=== PATIENT | female | born 1980 | race Caucasian/White ===

== ENCOUNTER → 2019-01-03 11:21 | Outpatient (CLI) | payer OTHER, SELFPAY | PROVIDERS: Family Provider Family Medicine; PCP Family Medicine; Referring Provider Dermatology; Visit Provider Dermatology | DX: L71.8 Other rosacea (principal) | CPT/HCPCS: 86038 ==

== ENCOUNTER → 2019-02-26 10:11 | Outpatient (CLI) | payer OTHER, SELFPAY ==
[2019-02-26 11:23] LABS: EXAGEN MAILED SPECIMEN
[2019-02-26 12:35] LABS: Color, Urine Yellow (Yellow); Glucose, Dipstick Normal (Normal); Ketone-Dipstick Negative (Negative); Leukocyte Esterase-Dipstick Negative /ul (Negative); Nitrite-Dipstick Negative (Negative); Occult Blood-Urine Negative /ul (Negative); Protein-Dipstick Negative (Negative); Urine Bilirubin Dipstick Negative (Negative); Urine Clarity Sl. Cloudy (Clear); Urine Urobilinogen Normal (Normal)
[2019-02-26 12:38] LABS: Partial Thromboplast Time 26.2 Seconds (24.1-36.2); Prothrombin Time (Protime)PT. 13.2 SECONDS (11.7-14.9)
[2019-02-26 12:49] LABS: ALB/GLOB Ratio 0.8 RATIO (0.9-2.4); AST(SGOT) 16 U/L (15-37); Alanine Aminotransfer ALT/SGPT 22 U/L (13-56); Albumin, Serum 3.5 g/dL (3.2-5.0); Alkaline Phosphatase 75 U/L (45-117); Anion Gap 9 (5-15); BUN 11 mg/dL (7-18); BUN/Creat Ratio 11.2 RATIO (10-20); Calcium,Total 8.8 mg/dL (8.5-10.1); Chloride 104 mmol/L (98-107); Creatinine, Serum 0.98 mg/dL (0.55-1.02); EST Glomerular Filtration Rate 66 mL/min (>60); Est Glom Filt Rate - Afr Amer 80 mL/min (>60); Globulin 4.4 g/dL (2.2-4.2); Glucose 72 mg/dL (74-106); Potassium 3.8 mmol/L (3.5-5.1); Protein, Total 7.9 g/dL (6.4-8.2); Sodium Level 140 mmol/L (136-145)
[2019-02-26 12:53] LABS: Absolute Lymphocyte Count 2.37 X10^3/ul (0.83-4.51); Absolute Neutrophil Count 5.1 X10^3/uL (2.0-7.7); Basophil# 0.04 X10^3/uL; Basophil% 0.5 % (0-1); Eosinophil# 0.12 X10^3/uL; Eosinophils% 1.4 % (0-5); Hematocrit 43.5 % (37-47); Hemoglobin 14.6 g/dl (12.0-15.0); Lymphocyte # 2.37 X10^3/ul (4.0); Lymphocyte % 28.3 % (19-41); Mean Corp Hgb Conc 33.6 g/gl (32-36); Mean Corpuscular Hgb 30.6 pg (27.0-32.0); Mean Corpuscular Volume 91.2 fL (81-99); Monocyte# 0.73 X10^3/uL; Monocyte% 8.7 % (0-10); Platelet Count 132 K/mm3 (150-450); RBC Distribution Width CV 13.5 % (11.6-14.6); RBC Distribution Width SD 44.6 fl (35.1-43.9); Red Blood Count 4.77 M/mm3 (4.2-5.4); White Blood Count 8.4 K/mm3 (4.4-11.0)
[2019-02-26 12:55] LABS: Differential Indicated SCAN CRITERIA MET; POSITIVE COUNT NO; POSITIVE DIFFERENTIAL NO; POSITIVE MORPHOLOGY YES
[2019-02-26 12:58] LABS: Protein, Urine (Random) 9.3 mg/dL (<11.9); Protein:Creat Ratio 144 mg/g CRE (0-200)
[2019-02-26 13:10] LABS: Platelet Estimate ADEQUATE (ADEQ); Platelet Morphology LARGE
[2019-02-28 04:06] LABS: Dilute Prothrombin Time (dPT) 46.5 sec (0.0-55.0); Dilute Russell Viper Venom 40.6 sec (0.0-47.0); HEPATITIS B SURFACE AG Negative (Negative); Hexagonal Phase Phospholipid 5 sec (0-11); PTT-LA 33.9 sec (0.0-51.9); Thrombin Time 18.6 sec (0.0-23.0); dPT Confirm Ratio 1.18 Ratio (0.00-1.40)
[2019-02-28 11:26] LABS: Hep B Surface Antibodies Reactive (.); Hep C Antibodies 0.1 s/co ratio (0.0-0.9); Hepatitis B Core AB IgM Negative (Negative); Interpretation Comment: (.)
[2019-02-28 11:29] LABS: Thrombin Time 17.8 sec (0.0-23.0)
== END ==
PROVIDERS: Family Provider Family Medicine; PCP Family Medicine; Referring Provider Internal Medicine Rheumatology; Visit Provider Internal Medicine Rheumatology
DX: M06.4 Inflammatory polyarthropathy (principal); R76.8 Other specified abnormal immunological findings in serum; M72.2 Plantar fascial fibromatosis; L71.9 Rosacea, unspecified; F32.89 Other specified depressive episodes; J30.9 Allergic rhinitis, unspecified; M21.40 Flat foot [pes planus] (acquired), unspecified foot
CPT/HCPCS: 36415; 80053; 81002; 82570; 84156; 85025; 85598; 85610; 85670; 85730; 86705; 86706; 86803; 87340

== ENCOUNTER → 2019-03-28 09:11 | Outpatient (CLI) | payer OTHER, SELFPAY ==
--- NOTE | 2019-03-28 09:15 | RAD_ITS ---
HISTORY: HEEL PAIN COMPARISON: None FINDINGS: # of images incl. paperwork: 3 XR Foot Min 3 Views : A tiny plantar calcaneal spur is present. No fracture or subluxation. No osseous or soft tissue abnormality. The joint spaces are well-maintained. No radiopaque foreign body is seen. RAD/Foot min 3 Views IMPRESSION: No acute injury to the right foot perceived. Small plantar calcaneal spur. at 2250 Reported and signed by: Chau George MD Electronically Signed: Chau George MD at 22:49 EDT Tel , Service support ,
--- NOTE | 2019-03-28 09:16 | RAD_ITS ---
HISTORY: HEEL PAIN COMPARISON: Previous study is nonweightbearing from January 22, 2016 FINDINGS: # of images incl. paperwork: 3 XR Foot Min 3 Views : Fixation plate within the medial aspect of the distal tibia is unchanged. Peroneal ossicle is ossified to a greater degree than previously. No fracture or subluxation. No osseous or soft tissue abnormality. The joint spaces are well-maintained. No radiopaque foreign body is seen. RAD/Foot min 3 Views IMPRESSION: Normal left foot. at 2251 Reported and signed by: Chau George MD Electronically Signed: Chau George MD at 22:50 EDT Tel , Service support ,
== END ==
PROVIDERS: Family Provider Family Medicine; PCP Family Medicine; Referring Provider Podiatrist; Visit Provider Podiatrist
DX: M72.2 Plantar fascial fibromatosis (principal)
CPT/HCPCS: 73630

== ENCOUNTER 2019-07-06 10:19 | Day surgery (SDC) | payer OTHER, SELFPAY ==
--- NOTE | 2019-07-02 15:34 | HP.PCM_ITS ---
History and Physical Date of Admission: 07/06/19 Mallory Ricop 1980 ? ? REFERRING PHYSICIAN: Cristiana Reyes ([facility]), DEC* ? CHIEF COMPLAINT: Breast neoplasia ? 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 She tolerated biopsy, has no new complaints She denies fevers. Notes bruising at site, but minimal pain in the area. ? Pathology - needle core biopsy 06/25/19 - Nodular adenosis with apocrine metaplasia. COMMENT Immunohistochemical stains for p63 and SMMS-1 demonstrate the presence of myoepithelial cells throughout the lesion. ? ? PAST MEDICAL HISTORY ? Fracture of tibia and fibula 10/29/2015 ? PLANTAR WART ? ? R hallux ? PMH - PAST MEDICAL HISTORY OF ? ? 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 Rosacea 05/17/2018 ? Thrombocytopenia (HCC) 02/09/06 ? PAST SURGICAL HISTORY ? INSERTION OF IUD ? 02/14/2019 ? Mirena ? ORAL SURGERY PROCEDURE ? ? ? WISDOM TEETH EXTRACTION ? PAST SURGICAL HISTORY OF ? ? ? HYMENECTOMY ? PAST SURGICAL HISTORY OF ? 04/2010 ? excision of skin lesion from face ? PAST SURGICAL HISTORY OF ? 10/2015 ? See scanned documents ? REMOVAL OF OVARIAN CYST(S) ? 01/13/10 ? left ovarian cystecomy-hemorrhagic ? ? Current Outpatient Medications: hydroxychloroquine (PLAQUENIL) 200 mg tablet Take 200 mg by mouth once daily. levonorgestrel (MIRENA) 20 mcg/24 hours (5 yrs) 52 mg IUD 1 Each by INTRAUTERINE route one time only. FLUoxetine (PROZAC) 20 mg capsule Take 1 capsule by mouth once daily. metroNIDAZOLE 1 % cream Apply to affected area once daily. ammonium lactate (LAC-HYDRIN) 12 % cream Apply to affected area as needed. COMPOUNDED PRESCRIPTION Fluowart Gel: Fluorocracil (5) 5%, salicylic acid 15%, tygyn-d-nqnodff (2) 0.195%, cimetidine 5% in anhydrous base.SIG: apply to each wart with cotton swab BID. [place] area around wart with light film of Vaseline. Cover with bandage. MULTIVITAMIN ORAL Take by mouth. cetirizine (ZYRTEC) 10 mg tablet Take 10 mg by mouth once daily. ? ? ALLERGIES: Zithromax [Azithromycin]; Sulfa (Sulfonamide Antibiotics); Bactrim [Sulfamethoxazole-Trimethoprim] ? 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 FAMILY HISTORY ? Cancer Mother ? ? OVARIAN CANCER ? Colon Cancer Mother ? ? Uterine Cancer as well, small bowel obstruction ? Hypertension Father ? ? Lipids Father ? ? High Cholesterol ? Heart Maternal Grandmother ? ? Cardiopulmonary Arrest ? Heart Maternal Grandfather ? ? Cardiac Arrest, Arteriosclerotic Heart Disease ? Diabetes Paternal Grandmother ? ? Hypertension Paternal Grandmother ? ? Heart Paternal Grandfather ? ? [place] ? ? REVIEW OF SYSTEMS: ?General:???The patient denies fatigue, denies weight loss, denies weight gain, denies feeling hot, and denies feelings of cold. ?Eyes: ?The patient denies glaucoma, denies eye injury/surgery, wears glasses or contacts. ?Ear/Nose/Throat: ?The patient NOTES allergies, denies hayfever, denies ear infections, and denies bloody noses. ?Cardiovascular: ?The patient denies chest pain, denies heart disease, denies high blood pressure,denies cardiac stent, denies prior heart attack, denies irregular heart beat, denies high cholesterol, ?denies poor circulation, denies heart failure, other cardiac issues, denies claudication, denies cold feet, denies peripheral arterial stent. ?Respiratory: ?The patient denies tuberculosis, denies pneumonia, denies frequent cough, denies pulmonary embolism, denies shortness of breath, and denies coughing up blood. ?Gastrointestinal: ?The patient denies difficulty swallowing, denies acid reflux, denies ulcers, denies vomiting, denies jaundice/hepatitis, denies gallbladder problems, denies black or tarry stools, denies hemorrhoids, denies bleeding from rectum, denies diverticulitis, denies constipation, denies diarrhea, denies loss of stool control, and denies hernias. ?Kidney/Bladder: ?The patient denies kidney stones, denies urine infections, and denies bloody urine. ?Skin: ?The patient denies a history of skin cancer, denies bleeding/changing moles, and denies a history of skin rash. ?Neurologic: ?The patient denies a history of epilepsy/convulsions, denies headaches, denies head/spinal injuries, and denies stroke/TIA. ?Psychiatric: ?The patient denies psychiatric medications, denies depression , and denies voices, denies substance abuse. ?Endocrine: ?The patient denies thyroid disorders, denies diabetes, and denies hormonal problems. ?Hematologic: ?The patient denies a history of bruising, denies bleeding, and denies anemia, denies blood clots. ?Infections: ?The patient denies a history of measles and mumps, denies rheumatic fever, and denies sexually transmitted diseases. ?Musculoskeletal: ?The patient denies back pain/injury, denies back problems, denies sciatica, NOTES knee/foot trouble, NOTES arthritis, or denies gout. ?Obstetrical: menarche at age 9.5, , first age 29, breast feeding 6m, BCP use from age 21 for about 7 y, used Mirena IUD for a few months, used infertility hormones for about 2-4 y, LMP 9/16 ? ? PHYSICAL EXAMINATION: General: ?The patient is 38 year old female, well nourished, well hydrated in no acute distress. ?The patient is oriented to time, place, and person. VITALS:?Blood pressure 14/88, pulse 86, temperature 98.1 ?F RR 16 Ht: 5'8 Wt: 226#.? Head ? Normocephalic. EOM intact with sclera clear and no icterus noted.?Wearing glasses.??Mouth with mucus membranes moist. Neck - supple with no jugular venous distention noted. Trachea is midline. No carotid bruits noted. No thyroid enlargement or thyroid nodules detected. No masses noted. Chest/breast ? no asymmetry of breasts noted, no suspicious skin lesions noted - right breast with ecchymoses and healing biopsy site, no nipple discharge and both nipples everted, no breast masses noted Lungs ? clear to auscultation. ?Normal breath sounds. No rales/rhonchi/wheezing noted. No labored breathing noted, such as retractions. No cough heard. Heart ? normal S1 and S2 auscultated. No rubs/clicks/murmurs noted. Regular rate. Abdomen ? soft and benign. Normal bowel sounds. No abdominal bruits noted. No distention noted. Extremities ? no calf tenderness noted. No pitting edema noted. Skin ? normal skin integrity. Lymph ? no cervical adenopathy detected, no supraclavicular adenopathy detected, no axillary adenopathy detected Neurological ??gait normal, no focal deficits noted. Psych ? calm and appropriate RADIOLOGIC STUDIES: ?As Noted ? ? IMPRESSION: breast lesion of uncertain behavior ? PLAN: I have discussed the above with the patient and her who is present with her. Because of family history of ovarian cancer, infertility hormones, etc. ? I have recommended that further tissue to be obtained. I have offered further evaluation with wide local excision I have explained to procedure to them. I have counseled the patient as to the risks of the procedure, including but not limited to: infection, bleeding, injury to any blood vessels/nerves, scar tissue, wound infections, complications of anesthesia, etc. ? the patient understands. The patient wishes to proceed. Plan for right breast biopsy via wire localization at [facility] as per patients wishes. I have answered all questions to the patient?s satisfaction and the patient has no further questions. . 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
--- NOTE | 2019-07-06 | IMM_PTH ---
PATIENT: PAMELA GOODWIN LOC: [facility] [place] U#:[id number] AGE/SX: 38/F ROOM: RE07/06/[address]: Dr. Melinda Montelongo MD : 1980 BED: DIS: 07/06/2019 SPEC #: [id number] RECD: 07/12/19 10:34 STATUS: YVAN REQ #: [id number] KATHRYN: 07/06/19 00:[address]: Melinda Montelongo DEPT: IMMUNOHISTOCHEMISTRY RECD BY: Rufina Rodrgiuez ENTERED: 07/12/19 10:35 SP TYPE: IMMUNO OTHR DR: Dr. Haroldo Peck III, MD Tissues: Right breast, NOS Procedures: Calponin-1(initial) CALPONIN-1 (add) P40 (add) PHYSICIAN & INSTITUTION [place] [id number] SPECIMEN INFORMATION: Tissue Source: Right breast biopsy Clinical Info: Abnormal lesion of right breast Specimen Number: [id number] #4 & 9 CPT code: 46235, 87961 x3 METHODOLOGY: Deparaffinized sections of prefer/formalin-fixed tissue or PAP/DQ stained slides are incubated with monoclonal/polyclonal antibodies/oligonucleotide probes. Localization is made via biotin free immunoperoxidase method. Appropriate controls are performed and reacted as expected. Results on target cell population are indicated in the following table: RESULTS: ANTIBODY / CLONE RESULT Block 4 P40 (BC28) positive Calponin-1 (VG073M) positive Block 9 P40 (BC28) positive Calponin-1 (XZ369N) positive These tests were developed and their performance characteristics determined by [facility]. They may not have been cleared or approved by the U.S. Food and Drug Administration. The FDA has determined that such clearance or approval is not necessary. The above immunohistochemical/dualISH markers are ordered and reviewed by the Pathologist. INTERPRETATION: Right breast biopsy: Consistent with nodular adenosis. SJ:aishwarya 07/12/19
[2019-07-06 11:15] VITALS: BP 142/97; PULSE 80; RESP 64; TEMP 37.7; O2SAT 99; BMI 34.5
--- NOTE | 2019-07-06 11:16 | BI_ITS ---
SURGICAL BREAST SPECIMEN RADIOGRAPH CLINICAL: Document presence of tissue clip marker in biopsy specimen. FINDINGS: Specimen shows presence of tissue clip marker. Electronically Signed: Gabriel Wright, at 15:16 EDT , Service support , BI/Breast Biopsy Specimen
[2019-07-06] MEDS: Lactated Ringers 1,000 ML 75 ML IV (11:45)
[2019-07-06 12:10] LABS: Internal QC Validated? YES +Cl - CLEAR BKGD; Pregnancy, Urine Negative Negative
[2019-07-06] MEDS: Cefazolin 2 GM in 0.9% Normal Saline 100 ML IV (12:18)
--- NOTE | 2019-07-06 12:20 | PCM.DC.BS ---
Discharge Diet: No Restrictions Discharge Activity: Return to Normal Activity, May not drive while taking narcotic pain medications. Additional Activity Instructions:: Wear supportive bra during the day Call your doctor if your incision/area has: Continuous Slow Oozing, Foul Smelling Discharge Call your doctor if you observe: Fever of 101 or Higher Additional Dressing/Incision Instructions:: Leave dressing in place. May get wet in shower. Do not soak - no tub baths/swimming Allergies/Adverse Reactions: Allergies azithromycin [From Zithromax] Allergy (Verified 07/04/19 16:00) Chest tightness Sulfa (Sulfonamide Antibiotics) Allergy (Verified 07/04/19 16:00) Hives sulfamethoxazole [From Bactrim] Allergy (Verified 07/04/19 16:00) Hives trimethoprim [From Bactrim] Allergy (Verified 07/04/19 16:00) Hives Medications to take at Discharge Cetirizine HCl [Zyrtec] 10 mg PO DAILY PRN PRN 03/09/14 Fluoxetine [Prozac] 20 mg PO DAILY 10/29/15 Levonorgesterol [Mirena] 1 ea IY CONT 07/04/19 Hydrocodone/Acetaminophen [[place] 5-325 Tablet] 1 ea PO Q8 PRN 5 Days #15 tab 07/06/19 The following prescriptions were given: Hydrocodone/Acetaminophen [[place] 5-325 Tablet] 1 ea PO Q8 PRN 5 Days #15 tab PRN Reason: Pain Score 4-10/10 Prescription Printed Primary Care Physician: Haroldo Peck III, MD [Primary Care Provider] - Please Follow Up With: Melinda Montelongo MD - all When: to be seen in 7-10 days, please call for date and time, thank you
--- NOTE | 2019-07-06 12:21 | PCM.OPRPT ---
Report of Operation Date of Procedure: 07/06/19 Pre-Operative Diagnosis: right breast lesion of uncertain behavior - apocrine metaplasia, family history of ovarian cancer Post-Operative Diagnosis: same Surgery/Procedure Performed:: right breast biopsy via wire localization Description of Surgical Findings:: lower right breast lesion - outer answering service telephone operator: Lyudmila Colbert Type of Anesthesia:: General Anesthesiologist: Timi Espino Specimen's removed: right breast tissue Estimated Blood Loss (mL): < 10 ml Fluids Replaced: see anesthesia noted Description of Procedure: After informed consent was given, the patient was brought into the Breast Stereotactic Radiology suite. Appropriate time out protocol was followed. She was then placed in the prone position on the [place] stereotactic table. The patient?s right breast was placed in the opening at the head of the table. A material specialist compression mammogram was then obtained in the lateral view. The marker clip that was previously placed was identified. Stereo pictures of the lesion were then taken for XYZ coordinates. The Kopans needle was then positioned where it would be entering into the patient?s breast. The skin at this site was then cleansed with a surgical skin preparation. The skin and subcutaneous tissues at this site were then infiltrated with 1% xylocaine. The Kopans needle was then positioned into the patient?s breast at the proper coordinates of depth. A material specialist film was obtained which revealed the wire in proper position. The patient was then placed in the supine position and the wire was taped into place. A unilateral mammogram in the CC and MLO view were then taken for use in the OR. The patient tolerated this portion of the procedure well and was brought to the AC awaiting surgery in the OR. The patient was then brought to the Operating Room. Appropriate time out protocol was followed. She was then placed on the operating table in the supine position. A wire had already been placed in the stereotactic biopsy room in the radiology department as described above. The right breast with the wire in placed was then prepped with a sterile surgical skin preparation and sterile surgical drapes were placed. The skin and subcutaneous tissues at the site of the breast lesion was then infiltrated with 1% xylocaine with epinephrine. A transverse skin incision was then made with a 15 blade scalpel in the lower outer quadrant of the patient's right breast. It was carried down through to the subcutaneous tissues. Hemostasis was controlled with electrocautery. The breast tissue surrounding the wire was then carefully palpated out and from the surrounding tissues using electrocautery. The breast tissue, once from the breast, was then forwarded to the radiology department, where a specimen mammogram revealed that the marker clip was within the specimen. The breast tissue was then forwarded to pathology for analysis. Hemostasis was carefully controlled with electrocautery. The subdermal tissues were then approximated with vicryl suture. The incision was then reapproximated close using running monocryl suture. Cavilon and steristrips were then placed to reinforce the skin closure. A sterile dressing was then applied. The patient was then brought to the Recovery Room in stable condition. - Complications none noted - Admit VTE Documentation VTE Present on Admission: Yes VTE Mechan Device Prophylaxis: SCD's
--- NOTE | 2019-07-06 13:00 | BRBX_PTH ---
PATIENT: PAMELA GOODWIN LOC: [facility] [place] U#:[id number] AGE/SX: 38/F ROOM: RE07/06/[address]: Dr. Melinda Montelongo MD : 1980 BED: DIS: 07/06/2019 SPEC #: [id number] RECD: 07/06/19 13:10 STATUS: YVAN REQ #: [id number] KATHRYN: 07/06/19 13:[address]: Melinda Montelongo DEPT: SURGICAL PATHOLOGY RECD BY: Louis Mead ENTERED: 07/06/19 13:39 SP TYPE: BREAST BX OTHR DR: Dr. Haroldo Peck III, MD Tissues: Right breast, NOS Procedures: Surgery Specimen Level V Comments: @ Originally on account #[id number] Req #[id number] HEADER OPERATION: Right breast biopsy via localization PRE-OP DIAGNOSIS: Abnormal lesion of right breast TISSUE SUBMITTED: Right breast tissue MICROSCOPIC DIAGNOSIS Right breast, lumpectomy with needle localization: Multifocal nodular adenosis. Fibrocystic changes and intraductal hyperplasia without atypia. Negative for malignancy. Changes consistent with previous biopsy site. See comment. SJ:rg 07/11/19 COMMENT Immunohistochemistry ([id number]) supports the above diagnosis. Correlation with clinical, radiologic findings and appropriate follow up are necessary. Case has been reviewed in consultation with Dr. Franks who concurs with the above diagnosis. IDC:AM MICROSCOPIC DESCRIPTION Slides are reviewed. GROSS DESCRIPTION Received fresh and postfixed in formalin labeled with the patient's name is a specimen designated right breast tissue. The specimen consists of a piece of fibroadipose tissue containing a wire measuring 9 x 7 x 4 cm. The specimen is not oriented. The specimen is inked, serially sectioned and reveal a marie, indurated area measuring 2 x 1 x 0.5 cm. A second ill-defined, indurated area is also noted. Hydrogen Plant Operator sections are submitted in 12 cassettes. Cassettes 3-5 contain the marie, indurated area, 9?& 10 contains the ill-defined area. Sections will be submitted after additional fixation. / Emanuel 07/09/19 TC:5 CPT: 95336
[2019-07-06 13:22] VITALS: BP 132/85; BP 142/97; PULSE 103; RESP 18; TEMP 36.6; O2SAT 98
[2019-07-06 13:30] VITALS: BP 140/80; BP 142/97; PULSE 103; RESP 16; O2SAT 98
[2019-07-06 13:45] VITALS: BP 132/86; BP 142/97; PULSE 88; RESP 16; TEMP 36.8; O2SAT 95
[2019-07-06 15:45] VITALS: BP 142/97; PULSE 70; RESP 16; O2SAT 98
== END 2019-07-06 16:04 | disposition home or self-care (01) ==
LOC: SDC 10:19 → AC 10:21
PROVIDERS: Anesthesiology; Family Provider Family Medicine; PCP Family Medicine; Referring Provider Surgery; Visit Provider Surgery
PROC: (CPT 19125; principal; 2019-07-06 11:45)
DX: N60.21 Fibroadenosis of right breast (principal); N60.11 Diffuse cystic mastopathy of right breast; N60.81 Other benign mammary dysplasias of right breast; Z80.41 Family history of malignant neoplasm of ovary
CPT/HCPCS: 19125; 19281; 76098; 81025; 88305; 88307; 88341; 88342; J7050; J7120; J2405

== ENCOUNTER → 2019-09-28 07:39 | Outpatient (CLI) | payer OTHER, SELFPAY ==
[2019-09-28 07:51] LABS: Mucous, Urine 0 SEEN /hpf (<or=2+)
[2019-09-28 08:54] LABS: Erythrocyte Sedimentation Rate 14 mm/hr (0-20)
[2019-09-28 08:58] LABS: Absolute Lymphocyte Count 2.15 X10^3/uL (0.83-4.51); Absolute Neutrophil Count 4.9 X10^3/uL (2.0-7.7); Basophil# 0.06 X10^3/uL; Basophil% 0.7 % (0-1); Eosinophil# 0.12 X10^3/uL; Eosinophils% 1.5 % (0-5); Hematocrit 44.1 % (37-47); Hemoglobin 14.2 g/dL (12.0-15.0); Lymphocyte # 2.15 X10^3/ul (4.0); Lymphocyte % 26.8 % (19-41); Mean Corp Hgb Conc 32.2 g/dL (32-36); Mean Corpuscular Hgb 28.6 pg (27.0-32.0); Mean Corpuscular Volume 88.7 fL (81-99); Mean Platelet Vol. 14.1 fl (6.2-12.0); Monocyte# 0.75 X10^3/uL; Monocyte% 9.3 % (0-10); NRBC Flagged by Analyzer 0 % (0-5); Neutrophil # 4.93 X10^3/uL (2.7-7.7); Neutrophil % 61.5 % (47-70); Platelet Count 143 K/mm3 (150-450); RBC Distribution Width CV 13.1 % (11.6-14.6); RBC Distribution Width SD 42.1 fl (35.1-43.9); Red Blood Count 4.97 M/mm3 (4.2-5.4)
[2019-09-28 09:06] LABS: Glucose, Dipstick Normal (Normal); Ketone-Dipstick Negative (Negative); Leukocyte Esterase-Dipstick 25 /ul (Negative); Nitrite-Dipstick Negative (Negative); Occult Blood-Urine Negative /ul (Negative); Protein-Dipstick Negative (Negative); Specific Gravity, Urine 1.015 (1.002-1.030); Urine Bilirubin Dipstick Negative (Negative); Urine Urobilinogen Normal (Normal)
[2019-09-28 09:14] LABS: AST(SGOT) 18 U/L (15-37); Alanine Aminotransfer ALT/SGPT 35 U/L (13-56); Albumin, Serum 3.7 g/dL (3.2-5.0); Alkaline Phosphatase 84 U/L (45-117); Bilirubin, Direct 0.11 mg/dL (0.00-0.30); CRP 5.46 mg/L (0.0-3.0); Creatinine, Serum 0.86 mg/dL (0.55-1.02); EST Glomerular Filtration Rate 77 mL/min (>60); Est Glom Filt Rate - Afr Amer 93 mL/min (>60); Globulin 3.9 g/dL (2.2-4.2); Protein, Total 7.6 g/dL (6.4-8.2); Rheumatoid Factor < 10.0 IU/mL (<15); Thyroid Stim Hormone (TSH) 2.29 uIU/mL (0.358-3.74)
[2019-09-28 09:18] LABS: Color, Urine Yellow (Yellow); Urine Clarity Clear (Clear)
[2019-09-28 09:26] LABS: Bacteria 1+ /hpf (None Seen); Red Blood Cells-Urine 5-10 SEEN /hpf (0-5); Squamous Epithelial Cells - UA 0-5 SEEN /hpf (5-10); White Blood Cells 0-5 SEEN /hpf (0-5); Yeast-Urine 1+ /hpf (None Seen)
[2019-09-28 09:27] LABS: Amorphous Sediment 1+
[2019-10-06 14:07] LABS: Complement C3 133 mg/dL (82-167)
[2019-10-07 10:32] LABS: Anti-Cardiolipin Ab, IgG, Qn < 9 GPL U/mL (0-14); Anti-Cardiolipin Ab, IgM, Qn < 9 MPL U/mL (0-12); CCP IgG Antibodies 13 units (0-19); Thyroglobulin RIA 6.4 ng/mL (.); Thyroid Peroxidase AB 66 IU/mL (0-34)
== END ==
PROVIDERS: PCP Family Medicine; Referring Provider Internal Medicine Rheumatology; Visit Provider Internal Medicine Rheumatology
DX: M06.4 Inflammatory polyarthropathy (principal); R76.0 Raised antibody titer; E06.3 Autoimmune thyroiditis; Z79.899 Other long term (current) drug therapy
CPT/HCPCS: 36415; 80076; 81001; 82565; 84432; 84443; 85025; 85652; 86038; 86140; 86147; 86160; 86200; 86225; 86235; 86376; 86431; 86800

== ENCOUNTER → 2022-06-22 | Outpatient (CLI) | payer OTHER, SELFPAY ==
[2022-06-22 10:15] LABS: Absolute Lymphocyte Count 1.88 X10^3/uL (0.83-4.51); Absolute Neutrophil Count 3.9 X10^3/uL (2.0-7.7); Basophil# 0.06 X10^3/uL; Basophil% 0.9 % (0-1); Eosinophil# 0.15 X10^3/uL; Eosinophils% 2.3 % (0-5); Hemoglobin 14.6 g/dL (12.0-15.0); Lymphocyte # 1.88 X10^3/ul (0.83-4.51); Lymphocyte % 28.4 % (19-41); Mean Corp Hgb Conc 32.4 g/dL (32-36); Mean Corpuscular Hgb 30.5 pg (27.0-32.0); Mean Corpuscular Volume 94.1 fL (81-99); Mean Platelet Vol. 13.9 fl (6.2-12.0); Monocyte# 0.57 X10^3/uL; Monocyte% 8.6 % (0-10); NRBC Flagged by Analyzer 0 % (0-5); Neutrophil # 3.93 X10^3/uL (2.7-7.7); Neutrophil % 59.5 % (47-70); Platelet Count 143 K/mm3 (150-450); RBC Distribution Width CV 12.7 % (11.6-14.6); RBC Distribution Width SD 44.1 fl (35.1-43.9); Red Blood Count 4.78 M/mm3 (4.2-5.4); White Blood Count 6.6 K/mm3 (4.4-11.0)
[2022-06-22 11:15] LABS: Alanine Aminotransfer ALT/SGPT 22 U/L (13-56); Creatinine, Serum 0.81 mg/dL (0.55-1.02); EST Glomerular Filtration Rate 82 mL/min (>60); Est Glom Filt Rate - Afr Amer 99 mL/min (>60); Glucose 93 mg/dL (74-106); Thyroid Stim Hormone (TSH) 2.05 uIU/mL (0.358-3.74)
== END | disposition home or self-care (01) ==
PROVIDERS: PCP Family Medicine; Referring Provider Family Medicine; Visit Provider Family Medicine
DX: Z00.00 Encounter for general adult medical examination without abnormal findings (principal)
CPT/HCPCS: 36415; 82565; 82947; 84443; 84460; 85025

== ENCOUNTER → 2022-07-15 | Outpatient (CLI) | payer OTHER, SELFPAY ==
[2022-07-15 18:42] LABS: AST(SGOT) 18 U/L (15-37); Alanine Aminotransfer ALT/SGPT 25 U/L (13-56); Albumin, Serum 3.9 g/dL (3.2-5.0); Alkaline Phosphatase 72 U/L (45-117); Bilirubin, Direct 0.12 mg/dL (0.00-0.30); Globulin 3.9 g/dL (2.2-4.2); Protein, Total 7.8 g/dL (6.4-8.2)
[2022-07-16 10:23] LABS: HIV - WCH Non-Reactive (Nonreactive); Hepatitis B Surface Antibody Reactive; Hepatitis B Surface Antigen Non-Reactive (Nonreactive); Hepatitis C Antibody Non-Reactive (Nonreactive)
[2022-07-17 12:08] LABS: QNTFERON TB Mitogen Value > 10.00 IU/mL (.); QNTFERON TB Nil Value 0.02 IU/mL (.); QNTFERON TB1+ Ag Value 0.01 IU/mL (.); QNTFERON TB2+ Ag Value 0.02 IU/mL (.)
[2022-07-17 14:58] LABS: Hepatitis B Core Ab Total Negative (Negative); QNTIFERON TB Positive Criteria Negative (Negative)
== END | disposition home or self-care (01) ==
LOC: MTLAB 13:52
PROVIDERS: PCP Family Medicine; Referring Provider Dermatology; Visit Provider Dermatology
DX: L40.0 Psoriasis vulgaris (principal); L40.8 Other psoriasis; L72.8 Other follicular cysts of the skin and subcutaneous tissue; Z79.899 Other long term (current) drug therapy
CPT/HCPCS: 80076; 86480; 86703; 86704; 86706; 86803; 87340

== ENCOUNTER → 2023-06-24 | Outpatient (CLI) | payer OTHER, SELFPAY ==
[2023-06-24 12:19] LABS: Absolute Lymphocyte Count 1.68 X10^3/uL (0.83-4.51); Absolute Neutrophil Count 4.5 X10^3/uL (2.0-7.7); Basophil# 0.05 X10^3/uL; Basophil% 0.7 % (0-1); Eosinophil# 0.15 X10^3/uL; Eosinophils% 2.2 % (0-5); Hematocrit 46.5 % (37-47); Hemoglobin 14.9 g/dL (12.0-15.0); Lymphocyte # 1.68 X10^3/ul (0.83-4.51); Lymphocyte % 24.2 % (19-41); Mean Corpuscular Hgb 31.3 pg (27.0-32.0); Mean Corpuscular Volume 97.7 fL (81-99); Monocyte# 0.58 X10^3/uL; Monocyte% 8.4 % (0-10); NRBC Flagged by Analyzer 0 % (0-5); Neutrophil # 4.46 X10^3/uL (2.7-7.7); Neutrophil % 64.2 % (47-70); Platelet Count 147 K/mm3 (150-450); RBC Distribution Width CV 12.6 % (11.6-14.6); RBC Distribution Width SD 45.5 fl (35.1-43.9); Red Blood Count 4.76 M/mm3 (4.2-5.4); White Blood Count 6.9 K/mm3 (4.4-11.0)
[2023-06-24 12:35] LABS: AST(SGOT) 17 U/L (15-37); Alanine Aminotransfer ALT/SGPT 25 U/L (13-56); Albumin, Serum 3.7 g/dL (3.2-5.0); Alkaline Phosphatase 72 U/L (45-117); Anion Gap 5 (5-15); BUN 10 mg/dL (7-18); BUN/Creat Ratio 12.1 RATIO (10-20); Calcium,Total 8.7 mg/dL (8.5-10.1); Chloride 102 mmol/L (98-107); Cholesterol 154 mg/dL (200); Creatinine, Serum 0.82 mg/dL (0.55-1.02); EST Glomerular Filtration Rate 80 mL/min (>60); Est Glom Filt Rate - Afr Amer 96 mL/min (>60); Globulin 3.8 g/dL (2.2-4.2); Glucose 93 mg/dL (74-106); High Density Lipoprotein 52 mg/dL; Protein, Total 7.5 g/dL (6.4-8.2); Sodium Level 137 mmol/L (136-145); Triglycerides 70 mg/dL; Very Low Density Lipoprotein 14 mg/dL (5-40)
[2023-06-24 13:09] LABS: AST(SGOT) 12 U/L (15-37); Alanine Aminotransfer ALT/SGPT 25 U/L (13-56); Albumin, Serum 3.7 g/dL (3.2-5.0); Alkaline Phosphatase 68 U/L (45-117); Bilirubin, Direct 0.18 mg/dL (0.00-0.30); Globulin 3.7 g/dL (2.2-4.2); Protein, Total 7.4 g/dL (6.4-8.2)
[2023-06-29 16:09] LABS: QNTFERON TB Mitogen Value > 10.00 IU/mL (.); QNTFERON TB Nil Value 0.41 IU/mL (.); QNTFERON TB2+ Ag Value 0.36 IU/mL (.); QNTIFERON TB Positive Criteria Negative (Negative)
== END | disposition home or self-care (01) ==
PROVIDERS: PCP Family Medicine; Visit Provider Dermatology
DX: L40.0 Psoriasis vulgaris (principal); L40.8 Other psoriasis; L71.8 Other rosacea; Z79.899 Other long term (current) drug therapy
CPT/HCPCS: 36415; 80053; 80061; 80076; 85025; 86480

== ENCOUNTER → 2024-04-12 | Outpatient (CLI) | payer OTHER, SELFPAY ==
[2024-04-12 15:14] LABS: Absolute Lymphocyte Count 2.18 X10^3/uL (0.83-4.51); Absolute Neutrophil Count 5.7 X10^3/uL (2.0-7.7); Basophil# 0.06 X10^3/uL; Basophil% 0.7 % (0-1); Eosinophil# 0.11 X10^3/uL; Eosinophils% 1.2 % (0-5); Hemoglobin 14.7 g/dL (12.0-15.0); Lymphocyte # 2.18 X10^3/ul (0.83-4.51); Lymphocyte % 24.7 % (19-41); Mean Corp Hgb Conc 32.7 g/dL (32-36); Mean Corpuscular Hgb 30.2 pg (27.0-32.0); Mean Corpuscular Volume 92.6 fL (81-99); Mean Platelet Vol. 14.4 fl (6.2-12.0); Monocyte# 0.76 X10^3/uL; Monocyte% 8.6 % (0-10); NRBC Flagged by Analyzer 0 % (0-5); Neutrophil # 5.71 X10^3/uL (2.7-7.7); Neutrophil % 64.6 % (47-70); Platelet Count 161 K/mm3 (150-450); RBC Distribution Width CV 12.9 % (11.6-14.6); RBC Distribution Width SD 44.1 fl (35.1-43.9); Red Blood Count 4.86 M/mm3 (4.2-5.4); White Blood Count 8.8 K/mm3 (4.4-11.0)
[2024-04-12 15:42] LABS: ALB/GLOB Ratio 0.9 RATIO (0.9-2.4); AST(SGOT) 21 U/L (15-37); Alanine Aminotransfer ALT/SGPT 26 U/L (13-56); Albumin, Serum 3.9 g/dL (3.2-5.0); Alkaline Phosphatase 78 U/L (45-117); Anion Gap 7 (5-15); BUN 11 mg/dL (7-18); BUN/Creat Ratio 11.8 RATIO (10-20); Calcium,Total 9.1 mg/dL (8.5-10.1); Chloride 100 mmol/L (98-107); Creatinine, Serum 0.94 mg/dL (0.55-1.02); EST Glomerular Filtration Rate 69 mL/min (>60); Est Glom Filt Rate - Afr Amer 83 mL/min (>60); Globulin 4.3 g/dL (2.2-4.2); Glucose 94 mg/dL (74-106); Potassium 3.5 mmol/L (3.5-5.1); Protein, Total 8.2 g/dL (6.4-8.2); Sodium Level 135 mmol/L (136-145); Thyroid Stim Hormone (TSH) 1.87 uIU/mL (0.358-3.74)
[2024-04-12 15:49] LABS: Microalbumin,Random Urine 5.4 mg/L (NO RANGE EST.); Microalbumin:Creatinine Ratio 6.9 mg/g CRE (<30 mg/g CRE)
== END | disposition home or self-care (01) ==
PROVIDERS: PCP Family Medicine; Visit Provider Family Medicine
DX: D69.6 Thrombocytopenia, unspecified (principal); I10 Essential (primary) hypertension
CPT/HCPCS: 36415; 80053; 82043; 82570; 84443; 85025

== ENCOUNTER → 2024-05-16 | Outpatient (CLI) | payer OTHER, SELFPAY ==
[2024-05-16 10:38] LABS: Absolute Lymphocyte Count 2.35 X10^3/uL (0.83-4.51); Absolute Neutrophil Count 5.7 X10^3/uL (2.0-7.7); Basophil# 0.06 X10^3/uL; Basophil% 0.6 % (0-1); Eosinophil# 0.19 X10^3/uL; Hematocrit 42.1 % (37-47); Hemoglobin 13.8 g/dL (12.0-15.0); Lymphocyte # 2.35 X10^3/ul (0.83-4.51); Lymphocyte % 25.2 % (19-41); Mean Corp Hgb Conc 32.8 g/dL (32-36); Mean Corpuscular Hgb 30.8 pg (27.0-32.0); Monocyte# 1.01 X10^3/uL; Monocyte% 10.8 % (0-10); NRBC Flagged by Analyzer 0 % (0-5); Neutrophil # 5.69 X10^3/uL (2.7-7.7); Neutrophil % 61.1 % (47-70); Platelet Count 150 K/mm3 (150-450); RBC Distribution Width CV 13.2 % (11.6-14.6); Red Blood Count 4.48 M/mm3 (4.2-5.4); White Blood Count 9.3 K/mm3 (4.4-11.0)
[2024-05-16 11:03] LABS: AST(SGOT) 14 U/L (15-37); Alanine Aminotransfer ALT/SGPT 19 U/L (13-56); Albumin, Serum 3.6 g/dL (3.2-5.0); Alkaline Phosphatase 70 U/L (45-117); Bilirubin, Direct 0.14 mg/dL (0.00-0.30); Globulin 3.7 g/dL (2.2-4.2); Protein, Total 7.3 g/dL (6.4-8.2)
[2024-05-18 21:08] LABS: QNTFERON TB Mitogen Value > 10.00 IU/mL (.); QNTFERON TB Nil Value 0 IU/mL (.); QNTFERON TB1+ Ag Value 0 IU/mL (.); QNTFERON TB2+ Ag Value 0 IU/mL (.); QNTIFERON TB Positive Criteria Negative (Negative)
== END | disposition home or self-care (01) ==
LOC: MTLAB 08:23
PROVIDERS: PCP Family Medicine; Referring Provider Dermatology; Visit Provider Dermatology
DX: L40.8 Other psoriasis (principal); L71.8 Other rosacea; Z79.899 Other long term (current) drug therapy
CPT/HCPCS: 36415; 80076; 85025; 86480

== ENCOUNTER → 2024-12-25 | Outpatient (CLI) | payer OTHER, SELFPAY ==
[2024-12-25 10:26] LABS: Absolute Lymphocyte Count 2.33 X10^3/uL (0.83-4.51); Absolute Neutrophil Count 5.1 X10^3/uL (2.0-7.7); Basophil# 0.06 X10^3/uL; Basophil% 0.7 % (0-1); Eosinophil# 0.15 X10^3/uL; Eosinophils% 1.8 % (0-5); Hematocrit 42.6 % (37-47); Hemoglobin 14.2 g/dL (12.0-15.0); Lymphocyte # 2.33 X10^3/ul (0.83-4.51); Lymphocyte % 28.1 % (19-41); Mean Corp Hgb Conc 33.3 g/dL (32-36); Mean Corpuscular Hgb 30.9 pg (27.0-32.0); Mean Corpuscular Volume 92.6 fL (81-99); Mean Platelet Vol. 13.7 fl (6.2-12.0); Monocyte# 0.66 X10^3/uL; NRBC Flagged by Analyzer 0 % (0-5); Neutrophil # 5.07 X10^3/uL (2.7-7.7); Platelet Count 170 K/mm3 (150-450); RBC Distribution Width CV 13.3 % (11.6-14.6); RBC Distribution Width SD 45.5 fl (35.1-43.9); White Blood Count 8.3 K/mm3 (4.4-11.0)
[2024-12-25 11:05] LABS: Microalbumin,Random Urine < 12.0 mg/L (NO RANGE EST.); Microalbumin:Creatinine Ratio UNABLE TO CALCULATE mg/g CRE
[2024-12-25 11:13] LABS: ALB/GLOB Ratio 1.4 RATIO (0.9-2.4); AST(SGOT) 17 U/L (<=31); Alanine Aminotransfer ALT/SGPT 15 U/L (<=34); Albumin, Serum 4.2 g/dL (3.5-5.0); Alkaline Phosphatase 69 U/L (35-104); Anion Gap 9 (5-15); BUN 11 mg/dL (4-19); BUN/Creat Ratio 11.8 RATIO (10-20); Calcium,Total 9.6 mg/dL (7.6-11.0); Carbon Dioxide 27.9 mmol/L (21.0-32.0); Chloride 101 mmol/L (98-108); Creatinine, Serum 0.97 mg/dL (0.70-1.20); EST Glomerular Filtration Rate 73 (>60); Glucose 101 mg/dL (70-99); Protein, Total 7.2 g/dL (5.9-8.4); Sodium Level 138 mmol/L (133-145); Total Bilirubin 0.56 mg/dL (0.00-1.30)
== END | disposition home or self-care (01) ==
LOC: MFPLAB 08:53
PROVIDERS: PCP Family Medicine; Visit Provider Family Medicine
DX: D69.6 Thrombocytopenia, unspecified (principal); I10 Essential (primary) hypertension; E66.811 Obesity, class 1; Z68.33 Body mass index [BMI] 33.0-33.9, adult
CPT/HCPCS: 36415; 80053; 82043; 82570; 84443; 85025

== ENCOUNTER → 2025-02-27 | Outpatient (CLI) | payer OTHER, SELFPAY ==
--- OUTSIDE RECORDS SUMMARY | 2025-02-27 07:23 | XMS RPT_ITS | CCD ---
Author Organization [facility] Care Team Providers Care Patient Relations Director Name Role Phone Cisco HACKETT MD, Haroldo A Primary Care Provider Delroes vailable Unavailable Primary Care Provider Jody Peck III, MD, Frank A Primary Care Provider Delores vailable Unavailable Primary Care Provider UnavailEASTON Simms Attending Unavailable EASTON BAUTISTA Referring Unavailable Stalin DUFFY, Dr. Huerta Primary Care Provider Dr. Bradley Gant MD Attending Provider Bradley Gant Primary Care Unavailable Bradley Gant Attending Unavailable Andrew Gregory Attending Unavailable Andrew Gregory Referring Unavailable Bradley Gant Primary Care Unavailable Bradley Gant Attending Unavailable Bradley Gant Primary Care Unavailable Allergies Allergy Classification Reported Allergen(s) Allergy Type Date of Onset Reaction(s) Facility (14 sources) Azithromycin; Translations: [AZITHROMYCIN] Drug Allergy 12-10-19 06 Rash, Shortness of Breath [place] Work Phone: (10 sources) Sulfamethoxazole / Trimethoprim; Translations: [SULFAMETHOXAZOLE-T RIMETHOPRIM] Drug Allergy 12-10-19 06 Rash [place] Work Phone: (10 sources) Sulfonamides (Antibiotic); Translations: [SULFA (SULFONAMIDE ANTIBIOTICS)] Drug Intolerance 12-10-19 06 [facility] [place] Work Phone: (4 sources) Sulfamethoxazole Drug Allergy 07-04-20 19 [facility] (4 sources) Sulfonamides (Antibiotic) Allergy to substance 07-04-20 [facility] (4 sources) Trimethoprim Drug Allergy 07-04-20 19 [facility] (1 source) Azithromycin Drug Allergy 07-04-20 [facility] (1 source) Sulfamethoxazole Drug Allergy 07-04-20 [facility] (1 source) Sulfonamides (Antibiotic) Drug allergy (disorder) 07-04-20 [facility] (1 source) Trimethoprim Drug Allergy 07-04-20 [facility] Medications Current Medications Medication Drug Class(es) Dates Sig (Normalized) Sig (Original) betamethasone 0.5 mg/ml topical cream (9 sources) Corticosteroid Start: 06-15-2021 betamethasone dipropionate (DIPROSONE) 0.05 % cream 06/15/2021 Active calcipotriene 0.70231 mg/mg topical ointment (8 sources) Vitamin D Analog calcipotriene (DOVONEX) 0.005 % oint Apply 1 application to affected area twice daily. Active Comment on above: Apply 1 application to affected area twice daily. cetirizine hydrochloride 10 mg oral tablet (13 sources) Histamine-1 Receptor Antagonist Start: 03-09-2014 take 1 tablet by mouth once daily as needed Cetirizine Hcl (Zyrtec) 10 MG tablet Active 10 mg PO DAILY NEEDED as needed for Allergies March 09, 2014 12:00am Comment on above: Take 10 mg by mouth once daily. doxycycline hyclate 20 mg oral tablet (2 sources) Tetracycline-class Drug Start: 07-28-2023 take 1 tablet by mouth twice daily doxycycline 20 mg tablet TAKE 1 TABLET BY MOUTH TWICE A DAY WITH A FULL GLASS OF WATER, DO NOT TAKE WITH MULTIVITAMIN 07/28/2023 Active fluocinolone acetonide 0.1 mg/ml topical oil (9 sources) Corticosteroid Start: 06-15-2021 Fluocinolone-Shower Cap 0.01 % oil 06/15/2021 Active FLUoxetine 20 mg oral capsule (13 sources) Serotonin Reuptake Inhibitor Start: 10-29-2015 take 1 capsule by mouth once daily Fluoxetine 20 MG capsule Active 20 mg PO DAILY October 29, 2015 1:00am Comment on above: Take 1 capsule by [facility] daily. fluticasone propionate 0.05 mg/actuat metered dose nasal spray (9 sources) Corticosteroid Start: 06-15-2021 fluticasone (FLONASE) 50 mcg/actuation nasal spray 06/15/2021 Active indapamide 1.25 mg oral tablet (1 source) Thiazide-like Diuretic Start: 09-13-2024 take 1 tablet by mouth once indapamide (LOZOL) 1.25 mg tablet Take 1 tablet by mouth every afternoon. 09/13/2024 Active levonorgestrel 0.407459 mg/hr intrauterine system (13 sources) Progestin, Progestin-containin g Intrauterine Device Start: 07-04-2019 Levonorgestrel 1 EACH intrauterine device Active 1 NMA IY Continuous July 04, 2019 12:00am IMPLANTED levonorgestrel ( MIRENA) 20 mcg/24 hours (8 yrs) 52 mg IUD 1 Each by INTRAUTERINE route one time only. Active Comment on above: 1 Each by INTRAUTERI NE route one time only. magnesium oxide 400 mg oral tablet (1 source) Start: 07-08-20 24 take 1 tablet by mouth once daily at bedtime magnesium oxide (MAG-OX) 400 mg (241.3 mg magnesium) tablet Take 1 tablet by mouth daily at bedtime. 07/08/2024 Active melatonin 3 mg oral tablet (1 source) Start: 07-04-20 24 take 1 tablet by mouth once daily melatonin 3 mg tablet Take 3 mg by mouth once daily. 07/04/2024 Active MULTIVITAMIN ORAL (9 sources) MULTIVITAMIN ORA L Take by mouth. Active MULTIVITAMIN ORA L Take by mouth. 0 Active Comment on above: Take by mouth. 24 hr propranolol hydrochloride 60 mg extended release oral capsule (1 source) beta-Adrenergic Jeanette Start: 4 take 1 capsule by mouth once daily in the evening propranolol ER (INDERAL LA) 60 mg 24 hr capsule Take 60 mg by mouth every evening. 09/10/2024 Active SKYRIZI 150 mg/mL injection (2 sources) Start: 4 SKYRIZI 150 mg/mL injection 09/21/2023 Active Completed/Discontinued Medications Medication Drug Class(es) Dates Sig (Normalized) Sig (Original) acetaminophen 325 mg / HYDROcodone bitartrate 5 mg oral tablet (4 sources) Opioid Agonist Start: 07-06-2019 End: 07-12-2019 Hydrocodone-Acetami nophen 1 EACH tablet Discontinued 1 NMA PO EVERY 8 HOURS as needed for Pain Score 4-06/21 15 5 July 06, 2019 July 10, 2019 12:00am July 12, 2019 12:11am Start: 07-06-2019 End: 07-12-2019 Hydrocodone-Acetaminophen Di scontinued 1 EACH PO EVERY 8 HOURS 15 5 July 06, 2019 July 12, 2019 12:11am ammonium lactate 120 mg/ml topical cream (7 sources) ammonium lactate (LAC-HYDRIN) 12 % cream Apply to affected area as needed. 0 Active Comment on above: Apply to affected ar ea as needed. 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 09-07-2021 Chronic Fracture of lower limb (4 sources) Open fracture of tibia AND fibula; Translations: [Unspecified fracture of shaft of left fibula, initial encounter for open fracture type I or II] 07-02-2019 Episodic Other endocrine disorders (9 sources) Disorder of endocrine ovary; 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, unspecified] Onset: 12-04-2009 12-04-2009 Chronic Other inflammatory condition of skin (9 sources) Rosacea; Translations: [Other rosacea] Onset: 01-03-2019 06-13-2019 Chronic Other inflammatory condition of skin (1 source) Other psoriasis; Translations: [Other psoriasis] Onset: 06-05-2024 Chronic Other screening for suspected conditions (not mental disorders or infectious disease) (10 sources) Patient encounter status; Translations: [Encounter for screening mammogram for malignant neoplasm of breast] Onset: 10-02-2024 Episodic Residual codes; unclassified (1 source) Family history of malignant neoplasm of ovary; Translations: [Family history of malignant neoplasm of ovary] Episodic Past or Other Problems Problem Classification Problem Date Documented Date Episodic/Chronic Female infertility (4 sources) Female infertility; Translations: [Infertility, female, of unspecified origin] Onset: 08-20-2009 Resolved: 02-15-2014 02-15-2014 Chronic Neoplasms of unspecified nature or uncertain behavior (2 sources) Neoplasm of uncertain behavior of skin; Translations: [Neoplasm of uncertain behavior of skin] Onset: 10-19-2011 Resolved: 04-29-2014 04-29-2014 Episodic Other complications of ; puerperium affecting management of mother (2 sources) Advanced maternal age ; Translations: [Advanced maternal age in ] Onset: 07-23-2013 Resolved: 04-29-2014 09-07-2021 Episodic Other complications of (2 sources) Benign gestational thrombocytopenia; Translations: [Other diseases of the blood and blood-forming organs and certain disorders involving the immune mechanism complicating , unspecified trimester] Onset: 02-16-2011 Resolved: 04-29-2011 04-29-2011 Episodic Other and delivery including normal (4 sources) Normal in primigravida; Translations: [Encounter for supervision of normal first , unspecified trimester] Onset: 03-08-2011 Resolved: 04-29-2014 04-29-2011 Episodic Residual codes; unclassified (2 sources) Family history of disorder; Translations: [Family history of other diseases of the genitourinary system] Onset: 07-23-2013 Resolved: 09-11-2013 09-07-2021 Episodic Spondylosis; intervertebral disc disorders; other back problems (9 sources) Lumbar radiculopathy; Translations: [Radiculopathy, lumbar region] Onset: 07-04-2018 07-04-2018 Episodic Unclassified (2 sources) Large for gestation age fetus; Translations: [Large for dates ] Onset: 12-27-2013 Resolved: 04-29-2014 04-29-2014 Results Test Name Value Interpretation Reference Range Facility Absolute neutrophil countOrd ered By: Bradley Gant on 12-25-2024 Neutrophils (Bld) [#/Vol] 5.1 10*3/uL 2.0-7.7 [facility] Albumin DL <= 20 mg/L (U) [M ass/Vol]Ordered By: Bradley Gant on 12-25-2024 Urine Random Microalbumin < 12.0 mg/L NO RANGE EST. [facility] Anion gap in Serum or Plasma Ordered By: Bradley Gant on 12-25-2024 Anion gap [Moles/Vol] 9 mmol/L 01-24 [facility] BUN/creatinine ratioOrdered By: Bradley Gant on 12-25-2024 Urea nitrogen/Creatinine [Mass ratio] 11.8 mg/mg 10- [facility] Basophil percentageOrdered B y: Bradley Gant on 12-25-2024 Basophils/100 WBC (Bld) 0.7 % 0-1 [facility] Bilirubin, totalOrdered By: Bradley Gant on 12-25-2024 Bilirubin [Mass/Vol] 0.56 mg/dL 0.00-1.30 [facility] CBC W/Diff, Automatedon 12-11 Absolute Lymph 2.33 X10 3/uL Normal 0.83-4.51 [facility] Comment on above: Order Comment: Order Date: 12/25/24 Order Info: 018-1 - CBCD Performed By: #### L [id number], [id number], L100.0100 #### [facility] [address] [place], [address] Absolute Neut 5.1 X10 3/uL Normal 2.0-7.7 [facility] Comment on above: Order Comment: Order Date: 12/25/24 Order Info: 018- - CBCD Performed By: #### L [id number], [id number], L100.0100 #### [facility] [address] [place], [address] Basophils/100 WBC (Bld) 0.7 % Normal 0-1 [facility] Comment on above: Order Comment: Order Date: 12/25/24 Order Info: 018-1 - CBCD Performed By: #### L [id number], [id number], L100.0100 #### [facility] [address] [place], [address] Eosinophils/100 WBC (Bld) 1.8 % Normal 0-5 [facility] Comment on above: Order Comment: Order Date: 12/25/24 Order Info: 0184-1 - CBCD Performed By: #### L [id number], [id number], L100.0100 #### [facility] [address] [place], [address] Erythrocyte distribution width (RBC) [Ratio] 13.3 % Normal 11.6-14.6 [facility] Comment on above: Order Comment: Order Date: 12/25/24 Order Info: 0184-1 - CBCD Performed By: #### L [id number], [id number], L100.0100 #### [facility] [address] [place], [address] Hematocrit (Bld) [Volume fraction] 42.6 % Normal 37-47 [facility] Comment on above: Order Comment: Order Date: 12/25/24 Order Info: 0184- - CBCD Performed By: #### L [id number], [id number], L100.0100 #### [facility] [address] [place], [address] Hemoglobin (Bld) [Mass/Vol] 14.2 g/dL Normal 12.0-15.0 [facility] Comment on above: Order Comment: Order Date: 12/25/24 Order Info: 0184- - CBCD Performed By: #### L [id number], [id number], L100.0100 #### [facility] [address] [place], [address] IG% 0.400 Normal 0.0-0.9 [facility] Comment on above: Order Comment: Order Date: 12/25/24 Order Info: 0184- - CBCD Result Comment: IG% - Immature Granulocytes (promyelocytes, myelocytes and metamyelocytes) > 1% indicates that a LEFT SHIFT is Present. Performed By: #### L [id number], [id number], L100.0100 #### [facility] [address] [place], [address] Lymphocytes/100 WBC (Bld) 28.1 % Normal 19-41 [facility] Comment on above: Order Comment: Order Date: 12/25/24 Order Info: 0184-1 - CBCD Performed By: #### L [id number], [id number], L100.0100 #### [facility] [address] [place], [address] MCH (RBC) [Entitic mass] 30.9 pg Normal 27.0-32.0 [facility] Comment on above: Order Comment: Order Date: 12/25/24 Order Info: 0184-1 - CBCD Performed By: #### L [id number], [id number], L100.0100 #### [facility] [address] [place], [address] MCHC (RBC) [Mass/Vol] 33.3 g/dL Normal 32-36 [facility] Comment on above: Order Comment: Order Date: 12/25/24 Order Info: 0184-1 - CBCD Performed By: #### L [id number], [id number], L100.0100 #### [facility] [address] [place], [address] MCV (RBC) [Entitic vol] 92.6 fL Normal 81-99 [facility] Comment on above: Order Comment: Order Date: 12/25/24 Order Info: 0184-1 - CBCD Performed By: #### L [id number], [id number], L100.0100 #### [facility] [address] [place], [address] Monocytes/100 WBC (Bld) 8.0 % Normal 0-10 [facility] Comment on above: Order Comment: Order Date: 12/25/24 Order Info: 0184-1 - CBCD Performed By: #### L [id number], [id number], L100.0100 #### [facility] [address] [place], [address] Neutrophils/100 WBC (Bld) 61.0 % Normal 47-70 [facility] Comment on above: Order Comment: Order Date: 12/25/24 Order Info: 0184-1 - CBCD Performed By: #### L [id number], [id number], L100.0100 #### [facility] [address] [place], [address] Nucleated RBC (Bld) [#/Vol] 0 10*3/uL Normal 0-5 [facility] Comment on above: Order Comment: Order Date: 12/25/24 Order Info: 0184-1 - CBCD Performed By: #### L [id number], [id number], L100.0100 #### [facility] [address] [place], [address] Platelet mean volume (Bld) [Entitic vol] 13.7 fL High 6.2-12.0 [facility] Comment on above: Order Comment: Order Date: 12/25/24 Order Info: 0184-1 - CBCD Performed By: #### L [id number], [id number], L100.0100 #### [facility] [address] [place], [address] Platelets (Bld) [#/Vol] 170 10*3/uL Normal 150-450 [facility] Comment on above: Order Comment: Order Date: 12/25/24 Order Info: 0184-1 - CBCD Performed By: #### L [id number], [id number], L100.0100 #### [facility] [address] [place], [address] RBC (Bld) [#/Vol] 4.60 10*6/uL Normal 4.2-5.4 [facility] Comment on above: Order Comment: Order Date: 12/25/24 Order Info: 0184-1 - CBCD Performed By: #### L [id number], [id number], L100.0100 #### [facility] [address] [place], [address] RDW SD 45.5 fl High 35.1-43.9 [facility] Comment on above: Order Comment: Order Date: 12/25/24 Order Info: 0184-1 - CBCD Performed By: #### L [id number], [id number], L100.0100 #### [facility] [address] [place], [address] WBC (Bld) [#/Vol] 8.3 10*3/uL Normal 4.4-11.0 [facility] Comment on above: Order Comment: Order Date: 12/25/24 Order Info: 0184- - CBCD Performed By: #### L [id number], [id number], L100.0100 #### [facility] [address] [place], [address] Carbon dioxide, total [Moles /volume] in Central venous bloodOrdered By: Bradley Gant on 12-25-2024 CO2 [Moles/Vol] 27.9 mmol/L 21.0-32.0 [facility] Chloride assayOrdered By: Evan Gant on 12-25-2024 Chloride [Moles/Vol] 101 mmol/L 98-108 [facility] Comprehensive Metabolic Prof ilon 12-25-2024 Albumin [Mass/Vol] 4.2 g/dL Normal 3.5-5.0 [facility] Comment on above: Order Comment: Order Date: 12/25/24 Order Info: 0786-1 - CMP Order Info: 3016-3 - TSH Performed By: #### L [id number], [id number], L100.0100 #### [facility] [address] [place], [address] Albumin/Globulin [Mass ratio] 1.4 {ratio} Normal 0.9-2.4 [facility] Comment on above: Order Comment: Order Date: 12/25/24 Order Info: 0786-1 - CMP Order Info: 3016-3 - TSH Performed By: #### L [id number], [id number], L100.0100 #### [facility] [address] [place], [address] ALK PHOS 69 U/L Normal 35-104 [facility] Comment on above: Order Comment: Order Date: 12/25/24 Order Info: 0786-1 - CMP Order Info: 3016-3 - TSH Performed By: #### L [id number], [id number], L100.0100 #### [facility] [address] [place], [address] ALT [Catalytic activity/Vol] 15 U/L Normal <=34 [facility] Comment on above: Order Comment: Order Date: 12/25/24 Order Info: 0786-1 - CMP Order Info: 3016-3 - TSH Performed By: #### L [id number], [id number], L100.0100 #### [facility] [address] [place], [address] AST [Catalytic activity/Vol] 17 U/L Normal <=31 [facility] Comment on above: Order Comment: Order Date: 12/25/24 Order Info: 0786-1 - CMP Order Info: 301-3 - TSH Performed By: #### L [id number], [id number], L100.0100 #### [facility] [address] [place], [address] Bilirubin [Mass/Vol] 0.56 mg/dL Normal 0.00-1.30 [facility] Comment on above: Order Comment: Order Date: 12/25/24 Order Info: 0786-1 - CMP Order Info: 301-3 - TSH Performed By: #### L [id number], [id number], L100.0100 #### [facility] [address] [place], [address] BUN/CRE 11.8 RATIO Normal 10-20 [facility] Comment on above: Order Comment: Order Date: 12/25/24 Order Info: 0786-1 - CMP Order Info: 3016-3 - TSH Performed By: #### L [id number], [id number], L100.0100 #### [facility] [address] [place], [address] Calcium [Mass/Vol] 9.6 mg/dL Normal 7.6-11.0 [facility] Comment on above: Order Comment: Order Date: 12/25/24 Order Info: 0786-1 - CMP Order Info: 3015-3 - TSH Performed By: #### L [id number], [id number], L100.0100 #### [facility] [address] [place], [address] Chloride [Moles/Vol] 101 mmol/L Normal 98-108 [facility] Comment on above: Order Comment: Order Date: 12/25/24 Order Info: 0786- - CMP Order Info: 3 - TSH Performed By: #### L [id number], [id number], L100.0100 #### [facility] [address] [place], [address] CO2 [Moles/Vol] 27.9 mmol/L Normal 21.0-32.0 [facility] Comment on above: Order Comment: Order Date: 12/25/24 Order Info: 0786-1 - CMP Order Info: 3 - TSH Performed By: #### L [id number], [id number], L100.0100 #### [facility] [address] [place], [address] Creatinine [Mass/Vol] 0.97 mg/dL Normal 0.70-1.20 [facility] Comment on above: Order Comment: Order Date: 12/25/24 Order Info: 0786-1 - CMP Order Info: 3013 - TSH Performed By: #### L [id number], [id number], L100.0100 #### [facility] [address] [place], [address] GAP 9 Normal 5-15 [facility] Comment on above: Order Comment: Order Date: 12/25/24 Order Info: 0786-1 - CMP Order Info: 3016-3 - TSH Performed By: #### L [id number], [id number], L100.0100 #### [facility] [address] [place], [address] GFR/1.73 sq M.predicted among non-blacks MDRD (S/P/Bld) [Vol rate/Area] 73 mL/min/{1.73_m2} Normal >60 [facility] Comment on above: Order Comment: Order Date: 12/25/24 Order Info: 0786-1 - CMP Order Info: 3015-3 - TSH Result Comment: mL/m in/1.73m2 CKD-EPI Creatinine Equation (2020) Performed By: #### L [id number], [id number], L100.0100 #### [facility] [address] [place], [address] Globulin (S) [Mass/Vol] 3.0 g/dL Normal 2.2-4.2 [facility] Comment on above: Order Comment: Order Date: 12/25/24 Order Info: 0786-1 - CMP Order Info: 3016-3 - TSH Performed By: #### L [id number], [id number], L100.0100 #### [facility] [address] [place], [address] Glucose [Mass/Vol] 101 mg/dL High 70-99 [facility] Comment on above: Order Comment: Order Date: 12/25/24 Order Info: 0786-1 - CMP Order Info: 3016-3 - TSH Performed By: #### L [id number], [id number], L100.0100 #### [facility] [address] [place], [address] Potassium [Moles/Vol] 4.0 mmol/L Normal 3.3-5.1 [facility] Comment on above: Order Comment: Order Date: 12/25/24 Order Info: 0786-1 - CMP Order Info: 3 - TSH Performed By: #### L [id number], [id number], L100.0100 #### [facility] [address] [place], [address] Sodium [Moles/Vol] 138 mmol/L Normal 133-145 [facility] Comment on above: Order Comment: Order Date: 12/25/24 Order Info: 0786-1 - [facility] Order Info: 3015-11 - TSH Performed By: #### L [id number], [id number], L100.0100 #### [facility] [address] [place], [address] T PROT 7.2 g/dL Normal 5.9-8.4 [facility] Comment on above: Order Comment: Order Date: 12/25/24 Order Info: 0786-1 - [facility] Order Info: 3015-11 - TSH Performed By: #### L [id number], [id number], L100.0100 #### [facility] [address] [place], [address] Urea nitrogen [Mass/Vol] 11 mg/dL Normal 4-19 [facility] Comment on above: Order Comment: Order Date: 12/25/24 Order Info: 0786-1 - [facility] Order Info: 3015-11 - TSH Performed By: #### L [id number], [id number], L100.0100 #### [facility] [address] [place], [address] Creatinine Unsp time (U) [Ma ss/Vol]Ordered By: Bradley Gant on 12-25-2024 Creatinine (U) [Mass/Vol] 67.30 mg/dL 28.00-217.00 [facility] Eosinophil percentageOrdered By: Bradley Gant on 12-25-2024 Eosinophils/100 WBC (Bld) 1.8 % 0-5 [facility] Erythrocyte distribution wid th (RBC) [Ratio]Ordered By: Bradley Gant on 12-25-2024 Erythrocyte distribution width (RBC) [Entitic vol] 45.5 fL High 35.1-43.9 [facility] Erythrocyte distribution wid th ratioOrdered By: Bradley Gant on 12-25-2024 Erythrocyte distribution width (RBC) [Ratio] 13.3 % 11.6-14.6 [facility] GFR/1.73 sq M.predicted penelope g non-blacks MDRD (S/P/Bld) [Vol rate/Area]Ordered By: Bradley Gant on 12-25-2024 Estimated GFR (MDRD) Non-Af Amer 73 >60 [facility] Comment on above: mL/min/1.73m2 CKD-EP I Creatinine Equation (2020) Hematocrit Auto (Bld) [Volum e fraction]Ordered By: Bradley Gant on 12-25-2024 Hematocrit (Bld) [Volume fraction] 42.6 % 37-47 [facility] Hemoglobin measurementOrdere d By: Bradley Gant on 12-25-2024 Hemoglobin (Bld) [Mass/Vol] 14.2 g/dL 12.0-15.0 [facility] Immature granulocytes/100 WB C Auto (Bld)Ordered By: Bradley Gant on 12-25-2024 Immature granulocytes/100 WBC (Bld) 0.400 % 0.0-0.9 [facility] Comment on above: IG% - Immature Granu locytes (promyelocytes, myelocytes and metamyelocytes) > 1% indicates that a LEFT SHIFT is Present. Laboratory - Chemistry and C hemistry - challengeOrdered By: Bradley Gant on 12-25-2024 AST [Catalytic activity/Vol] 17 U/L <32 [facility] Lymphocytes Auto (Unsp spec) [#/Vol]Ordered By: Bradley Gant on 12-25-2024 Lymphocytes (Bld) [#/Vol] 2.33 10*3/uL 0.83-4.51 [facility] Lymphocytes/100 WBC Auto (Un sp spec)Ordered By: Bradley Gant on 12-25-2024 Lymphocytes/100 WBC (Bld) 28.1 % 19-41 [facility] MCV (mean corpuscular volume ) determinationOrdered By: Bradley Gant on 12-25-2024 MCV (RBC) [Entitic vol] 92.6 fL 81-99 [facility] Mean corpuscular hemoglobin (MCH) determinationOrdered By: Bradley Gant on 12-25-2024 MCH (RBC) [Entitic mass] 30.9 pg 27.0-32.0 [facility] Mean corpuscular hemoglobin concentration (MCHC) determinationOrdered By: Bradley Gant on 12-25-2024 MCHC (RBC) [Mass/Vol] 33.3 g/dL 32-36 [facility] Mean platelet volume determi nationOrdered By: Bradley Gant on 12-25-2024 Platelet mean volume (Bld) [Entitic vol] 13.7 fL High 6.2-12.0 [facility] Microalb:Creat Ratio,Random URon 12-25-2024 Creatinine [Mass/Vol] 67.30 mg/dL Normal 28.00-217.00 [facility] Comment on above: Order Comment: Order Date: 04/12/24 Order Info: [id number] - MIACRE Performed By: #### L 500.4050, L100.0100, L502.0250, L501.9520 #### [facility] [address] [place], [address] MALB:CREAT UNABLE TO CALCULATE Normal [facility] Comment on above: Order Comment: Order Date: 04/12/24 Order Info: [id number] - MIACRE Performed By: #### L 500.4050, L100.0100, L502.0250, L501.9520 #### [facility] [address] [place], [address] MICROALBUMIN,UR < 12.0 Normal NO RANGE EST. [facility] Comment on above: Order Comment: Order Date: 04/12/24 Order Info: [id number] - MIACRE Performed By: #### L 500.4050, L100.0100, L502.0250, L501.9520 #### [facility] [address] [place], [address] Microalbumin/creat ratio urO rdered By: Bradley Gant on 12-25-2024 Urine Microalbumin/Creatinin e Ratio UNABLE TO CALCULATE mg/g CRE [facility] Monocyte percentageOrdered B y: Bradley Gant on 12-25-2024 Monocytes/100 WBC (Bld) 8.0 % 0-10 [facility] Neutrophil percentageOrdered By: Bradley Gant on 12-25-2024 Neutrophils/100 WBC (Bld) 61.0 % 47-70 [facility] Nucleated red blood cell per centageOrdered By: Bradley Gant on 12-25-2024 Nucleated RBC/100 WBC (Bld) [Ratio] 0 % 0-5 [facility] Platelet countOrdered By: Evan Gant on 12-25-2024 Platelets (Bld) [#/Vol] 170 10*3/uL 150-450 [facility] Potassium (Unsp spec) [Mass/ Vol]Ordered By: Bradley Gant on 12-25-2024 Potassium [Moles/Vol] 4.0 mmol/L 3.3-5.1 [facility] RBC Auto (Bld) [#/Vol]Ordere d By: Bradley Gant on 12-25-2024 RBC (Bld) [#/Vol] 4.60 10*6/uL 4.2-5.4 [facility] Serum creatinine measurement (mass/volume)Ordered By: Bradley Gant on 12-25-2024 Creatinine [Mass/Vol] 0.97 mg/dL 0.70-1.20 [facility] Serum globulin measurementOr dered By: Bradley Gant on 12-25-2024 Globulin (S) [Mass/Vol] 3.0 g/dL 2.2-4.2 [facility] Serum glucose measurement (m ass/volume)Ordered By: Bradley Gant on 12-25-2024 Glucose [Mass/Vol] 101 mg/dL High 70-99 [facility] Serum or plasma alanine reilly otransferase (ALT) measurementOrdered By: Bradley Gant on 12-25-2024 ALT [Catalytic activity/Vol] 15 U/L <35 [facility] Serum or plasma albumin mary urement (mass/volume)Ordered By: Bradley Gant on 12-25-2024 Albumin [Mass/Vol] 4.2 g/dL 3.5-5.0 [facility] Serum or plasma albumin/glob ulin mass ratioOrdered By: Bradley Gant on 12-25-2024 Albumin/Globulin [Mass ratio] 1.4 {ratio} 0.9-2.4 [facility] Serum or plasma alkaline carlos sphatase measurementOrdered By: Bradley Gant on 12-25-2024 ALP [Catalytic activity/Vol] 69 U/L 35-104 [facility] Serum or plasma calcium mary urement (mass/volume)Ordered By: Bradley Gant on 12-25-2024 Calcium [Mass/Vol] 9.6 mg/dL 7.6-11.0 [facility] Serum or plasma urea nitroge n measurement (mass/volume)Ordered By: Bradley Gant on 12-25-2024 Urea nitrogen [Mass/Vol] 11 mg/dL 4-19 [facility] Sodium levelOrdered By: Bradley Gant on 12-25-2024 Sodium [Moles/Vol] 138 mmol/L 133-145 [facility] TSH DL <= 0.005 mIU/L QnOrde red By: Bradley Gant on 12-25-2024 Thyroid Stimulating Hormone (TSH) 2.420 uIU/mL 0.300-4.200 [facility] Thyroid Stim Hormone (TSH)on 12-25-2024 TSH 2.420 uIU/mL Normal 0.300-4.200 [facility] Comment on above: Order Comment: Order Date: 12/25/24 Order Info: [id number] - CMP Order Info: [id number] - TSH Performed By: #### L 501.9520, L500.4050, L100.0100 #### [facility] [address] [place] [address]. [place], [address] Total proteinOrdered By: Jessica Gant on 12-25-2024 Protein [Mass/Vol] 7.2 g/dL 5.9-8.4 [facility] White blood cell (WBC) count Ordered By: Bradley Gant on 12-25-2024 WBC (Bld) [#/Vol] 8.3 10*3/uL 4.4-11.0 [facility] CNOVon 10-02-2024 CNOV Office Visit (OBGYWM ) -------- PAMELA NAVA ([id number]) 1980 F Date Time Provider Department 10/02/24 8:40 AM EASTON BAUTISTA OBKEARA During your visit today, we recorded the following information about you: Blood pressure Weight Height Last Period 124/76 114.7 kg 1.707 m 05/28/19 Easton Bautista MD 10/02/2024 9:02 AM Signed Patient declined land use plannerSimeon Tejada is a 43 year old who presents for an annual gynecologic exam without complaints. Light menses regualarly w/ IUD and some spotting.Same as last year. Contraception: IUD Contraception frequency: Always HPV vaccine: No HPV:negative 06/23/2020 Last pap smear: 06/23/2020, negative History of abnormal pap: No Colposcopy: No. Leep: No. Cone biopsy: No. Bothersome pelvic pain: No Last mammogram: 2024 result pending with visit. OB History T1 L2 SAB1 IAB0 Ectopic0 Multiple0 Live Births2 Brand Coordinator History LMP: 05/28/2019, IUD Age at Menarche: Age at First : Age at Menopause: Brand Coordinator History Comments: Sexual Activity: Yes; Male Contraception: I.U.D. 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 Rosacea 05/17/2018 Thrombocytopenia (HCC) 02/09/06 PAST SURGICAL HISTORY Procedure Laterality Date EXC BREAST LES PREOP PLMT RAD MARKER OPEN 1 LES Right 07/06/2019 INSERTION OF IUD 02/14/2019 Mirena OVARIAN CYSTECTOMY UNI/BI 01/13/10 left ovarian cystecomy-hemorrhagic PAST SURGICAL HISTORY OF HYMENECTOMY PAST SURGICAL HISTORY OF 04/2010 excision of skin lesion from face PAST SURGICAL HISTORY OF 10/2015 See scanned documents UNSPECIFIED ORAL SURGERY PROCEDURE, BY REPORT WISDOM TEETH EXTRACTION FAMILY HISTORY Problem Relation Age of Onset Cancer Mother OVARIAN CANCER Colon Cancer Mother Uterine Cancer as well, small bowel obstruction Hypertension Father Lipids Father High Cholesterol Heart Maternal Grandmother Cardiopulmonary Arrest Heart Maternal Grandfather Cardiac Arrest, Arteriosclerotic Heart Disease Diabetes Paternal Grandmother Hypertension Paternal Grandmother Heart Paternal Grandfather [place] SOCIAL HISTORY Social History Tobacco Use Smoking status: Never Smokeless tobacco: Never Vaping Use Vaping status: Never Used Substance Use Topics Alcohol use: No Drug use: No REVIEW OF SYSTEMS Abdomen: No abdominal pain, nausea, vomiting, diarrhea, or constipation. No bloating, early satiety, indigestion, or increased flatulence. Bladder: No dysuria, gross hematuria, urinary frequency, urinary urgency, or incontinence. Breast: No breast lumps, nipple d/c, overlying skin changes, redness or skin retraction. Allergies and current medication updated:Yes SENSITIVE EXAM: The sensitive examination was discussed with the Patient or Patient's Authorized Derrick Boat Operator. As applicable, any other physician, advance practice provider, medical student, or other health professional student that will be observing or involved in the sensitive examination for educational or training purposes was discussed with the Patient or Authorized Derrick Boat Operator. The Patient or Authorized Derrick Boat Operator has agreed to proceed with the sensitive examination. (Sensitive examination includes inspection and/or palpation of the breasts, pelvis, prostate and anorectal regions). EXAM: LMP 05/28/2019 GENERAL: pleasant, female in no apparent distress HEENT: Normocephalic, atraumatic, mucus membranes moist, and no lesions NECK: Supple, full range of motion, no adenopathy, and thyroid normal DERMATOLOGY: Normal, without lesions, non-icteric, and non-hirsute BREAST: soft, non-tender, symmetric, no dominant mass, normal nipple-areolar complex, no lymphadenopathy, and no nipple discharge CHEST: Normal inspiratory effort ABDOMEN: soft, non-tender, and no masses PELVIC: external genitalia normal, normal Bartholin's glands, urethra, Cloverdale's glands, no vulvar lesions, no cervical lesions, good vaginal support, physiologic discharge present, normal appearing perineal body and perianal region BIMANUAL: uterus normal size, shape and consistency, no adnexal masses, and non-tender RECTOVAGINAL: deferred. NEURO: alert and oriented x3,exam grossly non-focal EXTREMITIES: normal ASSESSMENT/PLAN: 1) Health maintenance: Pap done with HPV. Mammogram ordered. Colon cancer screening: desires cologuard 2) Contraception: IUD. Contraceptive options reviewed and information provided. 3) STD screening: Declined STD check. 4) Follow up one year or sooner as needed Easton Bautista MD Allergies As of Date: 10/02/2024 Noted Allergy Reaction ZITHROMAX (AZITHROMYCIN) 12/09/2005 2 - Rash 12 - Shortness of Breath SULFA (SULFONAMIDE AN (more content not included)... Normal [facility] DBT Breast - bilateral scree iggygon 10-02-2024 IMPRESSION: There is no mammographic evidence of malignancy. Routine screening mammogram is recommended. Annual mammogram will be due in 1 year. BI-RADS Category 2: Benign RISK: Based on the Tyrer-Cuzick (TC) risk assessment model, this patient has a 17.7% lifetime risk of developing breast cancer, meaning they are at average risk for developing breast cancer. However, this is only an estimate based on available history provided on the patient's questionnaire. We encourage all patients to talk with their providers about these results, further recommendations for managing breast health, and appropriate supplemental screening options if the patient has dense breast tissue. Interpreting Radiologist: Shaylee Hastings M.D. Electronically signed on: 10/02/2024 Software Test Specialist: INESSA Transcribe Date/Time: Oct 02 2024 7:25A Dictated by: SHAYLEE HASTINGS MD This examination was interpreted and the report reviewed and electronically signed by: SHAYLEE HASTINGS MD on Oct 02 2024 11:42AM [facility] DIVISION OF RADIOLOGY * * *Final Report* * * DATE OF EXAM: Oct 02 2024 8:10AM [facility] 0582 - DOMI SCREENING W NBA / PROCEDURE REASON: multiple diagnoses * * * * Physician Interpretation * * * * RESULT: [place] [address] [place] [id number] #[id number] - DOMI SCREENING W NBA HISTORY: Patient is 43 years old and is seen for screening and is asymptomatic in both breasts. Patient states no personal history of breast cancer. Patient states no personal history of other cancers. COMPARISON STUDIES: The present examination has been compared to prior imaging studies dated 05/28/2020 (mammogram), 12/30/2020 (mammogram), 06/29/2021 (mammogram), 07/19/2022 (mammogram) and 08/03/2023 (mammogram). MAMMOGRAM TECHNIQUE: The study was acquired using full field digital technology and interpreted from soft copy. Digital Breast Tomosynthesis (DBT) images were obtained and used to assist in the interpretation of this examination. MAMMOGRAM FINDINGS: The breasts are heterogeneously dense, which may obscure small masses. There are post-operative changes in the right breast. No suspicious masses, calcifications or other abnormalities are seen in either breast. DIVISION OF RADIOLOGY Provider, [facility] - 10/02/2024 * * *Final Report* * * DATE OF EXAM: Oct 02 2024 8:10AM [facility] 0582 - [facility] SCREENING W NBA / PROCEDURE REASON: multiple diagnoses * * * * Physician Interpretation * * * * RESULT: [place] [address] #[id number] - [facility] SCREENING W NBA HISTORY: Patient is 43 years old and is seen for screening and is asymptomatic in both breasts. Patient states no personal history of breast cancer. Patient states no personal history of other cancers. COMPARISON STUDIES: The present examination has been compared to prior imaging studies dated 05/28/2020 (mammogram), 12/30/2020 (mammogram), 06/29/2021 (mammogram), 07/19/2022 (mammogram) and 08/03/2023 (mammogram). MAMMOGRAM TECHNIQUE: The study was acquired using full field digital technology and interpreted from soft copy. Digital Breast Tomosynthesis (DBT) images were obtained and used to assist in the interpretation of this examination. MAMMOGRAM FINDINGS: The breasts are heterogeneously dense, which may obscure small masses. There are post-operative changes in the right breast. No suspicious masses, calcifications or other abnormalities are seen in either breast. IMPRESSION IMPRESSION: There is no mammographic evidence of malignancy. Routine screening mammogram is recommended. Annual mammogram will be due in 1 year. BI-RADS Category 2: Benign RISK: Based on the Tyrer-Cuzick (TC) risk assessment model, this patient has a 17.7% lifetime risk of developing breast cancer, meaning they are at average risk for developing breast cancer. However, this is only an estimate based on available history provided on the patient's questionnaire. We encourage all patients to talk with their providers about these results, further recommendations for managing breast health, and appropriate supplemental screening options if the patient has dense breast tissue. Interpreting Radiologist: Shaylee Hastings M.D. Electronically signed on: 10/02/2024 Software Test Specialist: INESSA Transcribe Date/Time: Oct 02 2024 7:25A Dictated by: SHAYLEE HASTINGS MD This examination was interpreted and the report reviewed and electronically signed by: SHAYLEE HASITNGS MD on Oct 02 2024 11:42AM EST [facility] Study observation (narrative) [place] DBT Breast - bilateral scree ningOrdered By: [facility] Provider on 10-02-2024 [place] HIGH RISK HUMAN PAPILLOMA NIKKI (HPV), PCR FOR DETECTION AND GENOTYPINGon 10-02-2024 HPV 16 Ag Ql (Unsp spec) Not detected Normal Not detected [facility] Comment on above: Order Comment: Speci men Type: FLUID SPECIMEN Ordering Facility: [facility] Address: [address] [place] [address] Performed By: #### H PVHRT #### [facility] CLIA [id number] [address] [place] [address] [place] HPV 18 Ag Ql (Unsp spec) Not detected Normal Not detected [facility] Comment on above: Order Comment: Speci men Type: FLUID SPECIMEN Ordering Facility: [facility] Address: [address] [place] [address] Performed By: #### H PVHRT #### [facility] CLIA [id number] [address] [place] [address] [place] HPV 31+33+35+39+45+51+52+5 6+58+59+66+68 DNA BRET+probe Ql (Cvx) Not detected Normal Not detected [facility] Comment on above: Order Comment: Speci men Type: FLUID SPECIMEN Ordering Facility: [facility] Address: [address] [place] [id number] Result Comment: High Risk HPV Other Type includes HPV types 31, 33, 35, 39, 45, 51, 52, 56, 58, 59, 66 and 68. Performed By: #### H PVHRT #### [facility] CLIA [id number] [address] [place] [address] [id number] [address] [place] DOMI SCREENING W TOMOon 10-02 DOMI SCREENING W NBA * * *Final Report* * * DATE OF EXAM: Oct 02 2024 8:10AM [facility] 0582 - DOMI SCREENING W NBA / PROCEDURE REASON: multiple diagnoses * * * * Physician Interpretation * * * * RESULT: [place] [address] [place] [address] #[id number] - DOMI SCREENING W NBA HISTORY: Patient is 43 years old and is seen for screening and is asymptomatic in both breasts. Patient states no personal history of breast cancer. Patient states no personal history of other cancers. COMPARISON STUDIES: The present examination has been compared to prior imaging studies dated 05/28/2020 (mammogram), 12/30/2020 (mammogram), 06/29/2021 (mammogram), 07/19/2022 (mammogram) and 08/03/2023 (mammogram). MAMMOGRAM TECHNIQUE: The study was acquired using full field digital technology and interpreted from soft copy. Digital Breast Tomosynthesis (DBT) images were obtained and used to assist in the interpretation of this examination. MAMMOGRAM FINDINGS: The breasts are heterogeneously dense, which may obscure small masses. There are post-operative changes in the right breast. No suspicious masses, calcifications or other abnormalities are seen in either breast. IMPRESSION: There is no mammographic evidence of malignancy. Routine screening mammogram is recommended. Annual mammogram will be due in 1 year. BI-RADS Category 2: Benign RISK: Based on the Tyrer-Cuzick (TC) risk assessment model, this patient has a 17.7% lifetime risk of developing breast cancer, meaning they are at average risk for developing breast cancer. However, this is only an estimate based on available history provided on the patient's questionnaire. We encourage all patients to talk with their providers about these results, further recommendations for managing breast health, and appropriate supplemental screening options if the patient has dense breast tissue. Interpreting Radiologist: Shaylee Hastings M.D. Electronically signed on: 10/02/2024 Software Test Specialist: INESSA Transcribe Date/Time: Oct 02 2024 7:25A Dictated by: SHAYLEE HASTINGS MD This examination was interpreted and the report reviewed and electronically signed by: SHAYLEE HASTINGS MD on Oct 02 2024 11:42AM EST [id number] Normal [facility] PAP TESTon 10-02-2024 ADEQUACY Normal [facility] Comment on above: Order Comment: Speci men Type: FLUID SPECIMEN Ordering Facility: [facility] Address: [address] [place] [address] Result Comment: Raffi sfactazalia for interpretation. Limited cellularity. Performed By: #### L [id number] #### [facility] CLIA [id number] [address] [place] [address] [place] CASE REPORT Normal [facility] Comment on above: Order Comment: Speci men Type: FLUID SPECIMEN Ordering Facility: [facility] Address: [address] [place] [address] Result Comment: Gyne cologic Cytology Report Case: [id number] Authorizing Provider: Easton Bautista MD Collected: 10/02/2024 09:30 AM Ordering Location: OB/Gynecology Received: 10/02/2024 11:50 AM First Screen: Gmitro, Subhash, CT, ASCP Specimen: Pap Test, ThinPrep, Cervix Performed By: #### L [id number] #### [facility] CLIA [id number] [address] [place] [address] [place] CLINICAL HISTORY, CYTOLOGY, HOME TEACHING GRADES 7 AND 8 TEACHER Routine Exam Normal [facility] Comment on above: Order Comment: Speci men Type: FLUID SPECIMEN Ordering Facility: [facility] Address: [address] [place] [address] Result Comment: Intr a Uterine Device Performed By: #### L [id number] #### [facility] CLIA [id number] [address] [place] [address] [place] FINAL PERFORMING LAB Normal [facility] Comment on above: Order Comment: Speci men Type: FLUID SPECIMEN Ordering Facility: [facility] Address: [address] [place] [address] Result Comment: Tech nical component, scrap worker screening performed at [place], [address] [place], [place] [id number] CLIA# [id number] Diagnostic interpretation performed at [place], [address] [place], [place] [id number] CLIA# [id number] Ornament Maker Hand: Reinaldo Middleton M.D. Performed By: #### L [id number] #### [facility] CLIA [id number] [address] [place] [address] [place] INTERPRETATION, CYTOLOGY, HOME TEACHING GRADES 7 AND 8 TEACHER Normal [facility] Comment on above: Order Comment: Speci men Type: FLUID SPECIMEN Ordering Facility: [facility] Address: [address] [place] [address] Result Comment: Nega tive for intraepithelial lesion or malignancy. Performed By: #### L [id number] #### [facility] CLIA [id number] [address] [place] [address] [place] LMP 05/28/2019 Normal [facility] Comment on above: Order Comment: Speci men Type: FLUID SPECIMEN Ordering Facility: [facility] Address: [address] [place] [address] Performed By: #### L [id number] #### [facility] CLIA [id number] [address] [id number] [address] [place] PAP DISCLAIMER COMMENT The Pap Smear is a screening test for cervical cancer. False negative results occur with all screening tests, emphasizing the need for rescreening at recommended intervals, and clinical correlation. Normal [facility] Comment on above: Order Comment: Speci men Type: FLUID SPECIMEN Ordering Facility: [facility] Address: [address] [place], [place] [address] Performed By: #### L [id number] #### [facility] CLIA [id number] [address] [place] [id number] [place], [place] [id number] [facility] OF [place] Quantiferon TB-Gold+on 05-18 QFT MITOGEN TATYANA > 10.00 Normal . [facility] Comment on above: Performed By: #### L 500.3400, L3400.8000, L100.0100 #### [facility] [address] [place], [address] QFT NIL VALUE 0 IU/mL Normal . [facility] Comment on above: Performed By: #### L 500.3400, L3400.8000, L100.0100 #### [facility] [address] [place], [address] QFT TB GOLD+ Comment Normal . [facility] Comment on above: Result Comment: Felipe tiFERON-TB Gold Plus is a qualitative indirect test for M tuberculosis infection (including disease) and is intended for use in conjunction with risk assessment, radiography, and other medical and diagnostic evaluations. The QuantiFERON-TB Gold Plus result is determined by subtracting the Nil value from either TB antigen (Ag) value. The Mitogen tube serves as a control for the test. Performed By: #### L 500.3400, L3400.8000, L100.0100 #### [facility] [address] [place], [address] QFT TB POS CRIT Negative Normal Negative [facility] Comment on above: Result Comment: No r esponse to M tuberculosis antigens detected. Infection with M tuberculosis is unlikely, but high risk individuals should be considered for additional testing (ATS/IDSA/CDC Clinical Practice Guidelines, 2017). The reference range is an Antigen minus Nil result of <0.35 IU/mL. The specimen received for QuantiFERON testing was incubated by the ordering institution. Specific procedures outlined in our Directory of Services and in the package insert for the QuantiFERON Gold (In Tube) test must be followed to enable for proper stimulation of cells for the production of interferon gamma. Chemiluminescence immunoassay methodology Performed at: [address] [id number] Vp Production: Krishna Castellano PhD, Phone: [phone] Performed By: #### L 500.3400, L3400.8000, L100.0100 #### [facility] [address] [place], [address] QFT TB1+ AG TATYANA 0 IU/mL Normal . [facility] Comment on above: Performed By: #### L 500.3400, L3400.8000, L100.0100 #### [facility] [address] [place], [address] QFT TB2+ AG TATYANA 0 IU/mL Normal . [facility] Comment on above: Performed By: #### L 500.3400, L3400.8000, L100.0100 #### [facility] [address] [place], [address] CBC W/Diff, Automatedon 09-0 4-2024 MPV TNP Normal 6.2-12.0 [facility] Comment on above: Performed By: #### L 500.3400, L3400.8000, L100.0100 #### [facility] [address] [place], [address] Absolute Lymph 2.35 X10 3/uL Normal 0.83-4.51 [facility] Comment on above: Performed By: #### L 500.3400, L3400.8000, L100.0100 #### [facility] [address] [place], [address] Absolute Neut 5.7 X10 3/uL Normal 2.0-7.7 [facility] Comment on above: Performed By: #### L 500.3400, L3400.8000, L100.0100 #### [facility] [address] [place], [address] Basophils/100 WBC (Bld) 0.6 % Normal 0-1 [facility] Comment on above: Performed By: #### L 500.3400, L3400.8000, L100.0100 #### [facility] [address] [place], [address] Eosinophils/100 WBC (Bld) 2.0 % Normal 0-5 [facility] Comment on above: Performed By: #### L 500.3400, L3400.8000, L100.0100 #### [facility] [address] [place], [address] Erythrocyte distribution width (RBC) [Ratio] 13.2 % Normal 11.6-14.6 [facility] Comment on above: Performed By: #### L 500.3400, L3400.8000, L100.0100 #### [facility] [address] [place], [address] Hematocrit (Bld) [Volume fraction] 42.1 % Normal 37-47 [facility] Comment on above: Performed By: #### L 500.3400, L3400.8000, L100.0100 #### [facility] [address] [place], [address] Hemoglobin (Bld) [Mass/Vol] 13.8 g/dL Normal 12.0-15.0 [facility] Comment on above: Performed By: #### L 500.3400, L3400.8000, L100.0100 #### [facility] [address] [place], [address] IG% 0.300 Normal 0.0-0.9 [facility] Comment on above: Result Comment: IG% - Immature Granulocytes (promyelocytes, myelocytes and metamyelocytes) > 1% indicates that a LEFT SHIFT is Present. Performed By: #### L 500.3400, L3400.8000, L100.0100 #### [facility] [address] [place], [address] Lymphocytes/100 WBC (Bld) 25.2 % Normal 19-41 [facility] Comment on above: Performed By: #### L 500.3400, L3400.8000, L100.0100 #### [facility] [address] [place], [address] MCH (RBC) [Entitic mass] 30.8 pg Normal 27.0-32.0 [facility] Comment on above: Performed By: #### L 500.3400, L3400.8000, L100.0100 #### [facility] [address] [place], [address] MCHC (RBC) [Mass/Vol] 32.8 g/dL Normal 32-36 [facility] Comment on above: Performed By: #### L 500.3400, L3400.8000, L100.0100 #### [facility] [address] [place], [address] MCV (RBC) [Entitic vol] 94.0 fL Normal 81-99 [facility] Comment on above: Performed By: #### L 500.3400, L3400.8000, L100.0100 #### [facility] [address] [place], [address] Monocytes/100 WBC (Bld) 10.8 % High 0-10 [facility] Comment on above: Performed By: #### L 500.3400, L3400.8000, L100.0100 #### [facility] [address] [place], [address] Neutrophils/100 WBC (Bld) 61.1 % Normal 47-70 [facility] Comment on above: Performed By: #### L 500.3400, L3400.8000, L100.0100 #### [facility] [address] [place], [address] Nucleated RBC (Bld) [#/Vol] 0 10*3/uL Normal 0-5 [facility] Comment on above: Performed By: #### L 500.3400, L3400.8000, L100.0100 #### [facility] [address] [place], [address] Platelets (Bld) [#/Vol] 150 10*3/uL Normal 150-450 [facility] Comment on above: Performed By: #### L 500.3400, L3400.8000, L100.0100 #### [facility] [address] [place], [address] RBC (Bld) [#/Vol] 4.48 10*6/uL Normal 4.2-5.4 [facility] Comment on above: Performed By: #### L 500.3400, L3400.8000, L100.0100 #### [facility] [address] [place], [address] RDW SD 45.0 fl High 35.1-43.9 [facility] Comment on above: Performed By: #### L 500.3400, L3400.8000, L100.0100 #### [facility] [address] [place], [address] WBC (Bld) [#/Vol] 9.3 10*3/uL Normal 4.4-11.0 [facility] Comment on above: Performed By: #### L 500.3400, L3400.8000, L100.0100 #### [facility] [address] [place], [address] Liver Profileon 05-16-2024 Albumin [Mass/Vol] 3.6 g/dL Normal 3.2-5.0 [facility] Comment on above: Performed By: #### L 500.3400, L3400.8000, L100.0100 #### [facility] [address] [place], [address] ALK P 70 U/L Normal 45-117 [facility] Comment on above: Performed By: #### L 500.3400, L3400.8000, L100.0100 #### [facility] [address] [place], [address] ALT [Catalytic activity/Vol] 19 U/L Normal 13-56 [facility] Comment on above: Performed By: #### L 500.3400, L3400.8000, L100.0100 #### [facility] [address] [place], [address] AST [Catalytic activity/Vol] 14 U/L Low 15-37 [facility] Comment on above: Performed By: #### L 500.3400, L3400.8000, L100.0100 #### [facility] [address] [place], [address] Bilirubin [Mass/Vol] 0.50 mg/dL Normal 0.20-1.00 [facility] Comment on above: Result Comment: For patients on eltrombopag therapy, use of Dimension [place] TBIL is not recommended. Performed By: #### L 500.3400, L3400.8000, L100.0100 #### [facility] [address] [place], [address] Bilirubin.direct [Mass/Vol] 0.14 mg/dL Normal 0.00-0.30 [facility] Comment on above: Performed By: #### L 500.3400, L3400.8000, L100.0100 #### [facility] [address] [place], [address] Globulin (S) [Mass/Vol] 3.7 g/dL Normal 2.2-4.2 [facility] Comment on above: Performed By: #### L 500.3400, L3400.8000, L100.0100 #### [facility] [address] [place], [address] T PROT 7.3 g/dL Normal 6.4-8.2 [facility] Comment on above: Performed By: #### L 500.3400, L3400.8000, L100.0100 #### [facility] [address] [place], [address] CBC W/Diff, Automatedon 08-0 -2023 Absolute Lymph 2.18 X10 3/uL Normal 0.83-4.51 [facility] Comment on above: Order Comment: Order Date: 04/12/24 Order Info: 0184-1 - CBCD Performed By: #### L 500.4050, L100.0100, L502.0250, L501.9520 #### [facility] [address] [place], [address] Absolute Neut 5.7 X10 3/uL Normal 2.0-7.7 [facility] Comment on above: Order Comment: Order Date: 04/12/24 Order Info: 0184-1 - CBCD Performed By: #### L 500.4050, L100.0100, L502.0250, L501.9520 #### [facility] [address] [place], [address] Basophils/100 WBC (Bld) 0.7 % Normal 0-1 [facility] Comment on above: Order Comment: Order Date: 04/12/24 Order Info: 0184-1 - CBCD Performed By: #### L 500.4050, L100.0100, L502.0250, L501.9520 #### [facility] [address] [place], [address] Eosinophils/100 WBC (Bld) 1.2 % Normal 0-5 [facility] Comment on above: Order Comment: Order Date: 04/12/24 Order Info: 0184-1 - CBCD Performed By: #### L 500.4050, L100.0100, L502.0250, L501.9520 #### [facility] [address] [place], [address] Erythrocyte distribution width (RBC) [Ratio] 12.9 % Normal 11.6-14.6 [facility] Comment on above: Order Comment: Order Date: 04/12/24 Order Info: 0184- - CBCD Performed By: #### L 500.4050, L100.0100, L502.0250, L501.9520 #### [facility] [address] [place], [address] Hematocrit (Bld) [Volume fraction] 45.0 % Normal 37-47 [facility] Comment on above: Order Comment: Order Date: 04/12/24 Order Info: 0184- - CBCD Performed By: #### L 500.4050, L100.0100, L502.0250, L501.9520 #### [facility] [address] [place], [address] Hemoglobin (Bld) [Mass/Vol] 14.7 g/dL Normal 12.0-15.0 [facility] Comment on above: Order Comment: Order Date: 04/12/24 Order Info: 0184- - CBCD Performed By: #### L 500.4050, L100.0100, L502.0250, L501.9520 #### [facility] [address] [place], [address] IG% 0.200 Normal 0.0-0.9 [facility] Comment on above: Order Comment: Order Date: 04/12/24 Order Info: 0184-1 - CBCD Result Comment: IG% - Immature Granulocytes (promyelocytes, myelocytes and metamyelocytes) > 1% indicates that a LEFT SHIFT is Present. Performed By: #### L 500.4050, L100.0100, L502.0250, L501.9520 #### [facility] [address] [place], [address] Lymphocytes/100 WBC (Bld) 24.7 % Normal 19-41 [facility] Comment on above: Order Comment: Order Date: 04/12/24 Order Info: 0184-1 - CBCD Performed By: #### L 500.4050, L100.0100, L502.0250, L501.9520 #### [facility] [address] [place], [address] MCH (RBC) [Entitic mass] 30.2 pg Normal 27.0-32.0 [facility] Comment on above: Order Comment: Order Date: 04/12/24 Order Info: 0184- - CBCD Performed By: #### L 500.4050, L100.0100, L502.0250, L501.9520 #### [facility] [address] [place], [address] MCHC (RBC) [Mass/Vol] 32.7 g/dL Normal 32-36 [facility] Comment on above: Order Comment: Order Date: 04/12/24 Order Info: 0184-1 - CBCD Performed By: #### L 500.4050, L100.0100, L502.0250, [id number] #### [facility] [address] [place], [address] MCV (RBC) [Entitic vol] 92.6 fL Normal 81-99 [facility] Comment on above: Order Comment: Order Date: 04/12/24 Order Info: 0184-1 - CBCD Performed By: #### L 500.4050, L100.0100, L502.0250, L501.9520 #### [facility] [address] [place], [address] Monocytes/100 WBC (Bld) 8.6 % Normal 0-10 [facility] Comment on above: Order Comment: Order Date: 04/12/24 Order Info: 0184-1 - CBCD Performed By: #### L 500.4050, L100.0100, L502.0250, [id number] #### [facility] [address] [place], [address] Neutrophils/100 WBC (Bld) 64.6 % Normal 47-70 [facility] Comment on above: Order Comment: Order Date: 04/12/24 Order Info: 0184-1 - CBCD Performed By: #### L 500.4050, L100.0100, L502.0250, L501.9520 #### [facility] [address] [place], [address] Nucleated RBC (Bld) [#/Vol] 0 10*3/uL Normal 0-5 [facility] Comment on above: Order Comment: Order Date: 04/12/24 Order Info: 0184-1 - CBCD Performed By: #### L 500.4050, L100.0100, L502.0250, L501.9520 #### [facility] [address] [place], [address] Platelet mean volume (Bld) [Entitic vol] 14.4 fL High 6.2-12.0 [facility] Comment on above: Order Comment: Order Date: 04/12/24 Order Info: 0184-1 - CBCD Performed By: #### L 500.4050, L100.0100, L502.0250, [id number] #### [facility] [address] [place], [address] Platelets (Bld) [#/Vol] 161 10*3/uL Normal 150-450 [facility] Comment on above: Order Comment: Order Date: 04/12/24 Order Info: 0184-1 - CBCD Performed By: #### L 500.4050, L100.0100, L502.0250, [id number] #### [facility] [address] [place], [address] RBC (Bld) [#/Vol] 4.86 10*6/uL Normal 4.2-5.4 [facility] Comment on above: Order Comment: Order Date: 04/12/24 Order Info: 0184-1 - CBCD Performed By: #### L 500.4050, L100.0100, L502.0250, [id number] #### [facility] [address] [place], [address] RDW SD 44.1 fl High 35.1-43.9 [facility] Comment on above: Order Comment: Order Date: 04/12/24 Order Info: 0184- - CBCD Performed By: #### L 500.4050, L100.0100, L502.0250, [id number] #### [facility] [address] [place], [address] WBC (Bld) [#/Vol] 8.8 10*3/uL Normal 4.4-11.0 [facility] Comment on above: Order Comment: Order Date: 04/12/24 Order Info: 0184-1 - CBCD Performed By: #### L 500.4050, L100.0100, L502.0250, [id number] #### [facility] [address] [place], [address] Comprehensive Metabolic Prof pron 04-12-2024 Albumin [Mass/Vol] 3.9 g/dL Normal 3.2-5.0 [facility] Comment on above: Order Comment: Order Date: 04/12/24 Order Info: 0786-1 - CMP Order Info: 3016-3 - TSH Performed By: #### L 500.4050, L100.0100, L502.0250, [id number] #### [facility] [address] [place], [address] Albumin/Globulin [Mass ratio] 0.9 {ratio} Normal 0.9-2.4 [facility] Comment on above: Order Comment: Order Date: 04/12/24 Order Info: 0786-1 - CMP Order Info: 3016-3 - TSH Performed By: #### L 500.4050, L100.0100, L502.0250, [id number] #### [facility] [address] [place], [address] ALK P 78 U/L Normal 45-117 [facility] Comment on above: Order Comment: Order Date: 04/12/24 Order Info: 0786-1 - CMP Order Info: 3016-3 - TSH Performed By: #### L 500.4050, L100.0100, L502.0250, [id number] #### [facility] [address] [place], [address] ALT [Catalytic activity/Vol] 26 U/L Normal 13-56 [facility] Comment on above: Order Comment: Order Date: 04/12/24 Order Info: 0786-1 - CMP Order Info: 3016-3 - TSH Performed By: #### L 500.4050, L100.0100, L502.0250, [id number] #### [facility] [address] [place], [address] AST [Catalytic activity/Vol] 21 U/L Normal 15-37 [facility] Comment on above: Order Comment: Order Date: 04/12/24 Order Info: 0786-1 - CMP Order Info: 3016-3 - TSH Performed By: #### L 500.4050, L100.0100, L502.0250, [id number] #### [facility] [address] [place], [address] Bilirubin [Mass/Vol] 0.70 mg/dL Normal 0.20-1.00 [facility] Comment on above: Order Comment: Order Date: 04/12/24 Order Info: 0786-1 - CMP Order Info: 3016-3 - TSH Result Comment: For patients on eltrombopag therapy, use of Dimension [place] TBIL is not recommended. Performed By: #### L 500.4050, L100.0100, L502.0250, [id number] #### [facility] [address] [place], [address] BUN/CRE 11.8 RATIO Normal 10-20 [facility] Comment on above: Order Comment: Order Date: 04/12/24 Order Info: 0786-1 - CMP Order Info: 3013 - TSH Performed By: #### L 500.4050, L100.0100, L502.0250, [id number] #### [facility] [address] [place], [address] CA,Total 9.1 mg/dL Normal 8.5-10.1 [facility] Comment on above: Order Comment: Order Date: 04/12/24 Order Info: 0786-1 - CMP Order Info: 3013 - TSH Performed By: #### L 500.4050, L100.0100, L502.0250, [id number] #### [facility] [address] [place], [address] Chloride [Moles/Vol] 100 mmol/L Normal 98-107 [facility] Comment on above: Order Comment: Order Date: 04/12/24 Order Info: 0786-1 - CMP Order Info: 3016-3 - TSH Performed By: #### L 500.4050, L100.0100, L502.0250, L501.9520 #### [facility] [address] [place], [address] CO2 [Moles/Vol] 28.0 mmol/L Normal 21.0-32.0 [facility] Comment on above: Order Comment: Order Date: 04/12/24 Order Info: 0786-1 - CMP Order Info: 3016-3 - TSH Performed By: #### L 500.4050, L100.0100, L502.0250, L501.9520 #### [facility] [address] [place], [address] Creatinine [Mass/Vol] 0.94 mg/dL Normal 0.55-1.02 [facility] Comment on above: Order Comment: Order Date: 04/12/24 Order Info: 0786-1 - CMP Order Info: 30102-12 - TSH Result Comment: The validity of the calculated GFR GFRAA in patients over 70 years has not been determined. Clinical correlation is essential. Performed By: #### L 500.4050, L100.0100, L502.0250, L501.9520 #### [facility] [address] [place], [address] EST GFR - AA 83 mL/min Normal >60 [facility] Comment on above: Order Comment: Order Date: 04/12/24 Order Info: 0786-1 - [facility] Order Info: 3016 - TSH Result Comment: Afri can [place] GFR Calc Performed By: #### L 500.4050, L100.0100, L502.0250, L501.9520 #### [facility] [address] [place], [address] GAP 7 Normal 5-15 [facility] Comment on above: Order Comment: Order Date: 04/12/24 Order Info: 0786-1 - [facility] Order Info: 30163 - TSH Performed By: #### L 500.4050, L100.0100, L502.0250, L501.9520 #### [facility] [address] [place], [address] GFR/1.73 sq M.predicted among non-blacks MDRD (S/P/Bld) [Vol rate/Area] 69 mL/min/{1.73_m2} Normal >60 [facility] Comment on above: Order Comment: Order Date: 04/12/24 Order Info: 0786 - CMP Order Info: 3 - TSH Result Comment: Non- GFR Calc Performed By: #### L 500.4050, L100.0100, L502.0250, L501.9520 #### [facility] [address] [place], [address] Globulin (S) [Mass/Vol] 4.3 g/dL High 2.2-4.2 [facility] Comment on above: Order Comment: Order Date: 04/12/24 Order Info: 0786- - CMP Order Info: 3015-11 - TSH Performed By: #### L 500.4050, L100.0100, L502.0250, [id number] #### [facility] [address] [place], [address] Glucose [Mass/Vol] 94 mg/dL Normal 74-106 [facility] Comment on above: Order Comment: Order Date: 04/12/24 Order Info: 0786 - CMP Order Info: 3015-11 - TSH Performed By: #### L 500.4050, L100.0100, L502.0250, [id number] #### [facility] [address] [place], [address] Potassium [Moles/Vol] 3.5 mmol/L Normal 3.5-5.1 [facility] Comment on above: Order Comment: Order Date: 04/12/24 Order Info: 0786-1 - CMP Order Info: 3015-11 - TSH Performed By: #### L 500.4050, L100.0100, L502.0250, [id number] #### [facility] [address] [place], [address] Sodium [Moles/Vol] 135 mmol/L Low 136-145 [facility] Comment on above: Order Comment: Order Date: 04/12/24 Order Info: 0786- - CMP Order Info: 3 - TSH Performed By: #### L 500.4050, L100.0100, L502.0250, [id number] #### [facility] [address] [place], [address] T PROT 8.2 g/dL Normal 6.4-8.2 [facility] Comment on above: Order Comment: Order Date: 04/12/24 Order Info: 0786-1 - CMP Order Info: 3016-3 - TSH Performed By: #### L 500.4050, L100.0100, L502.0250, [id number] #### [facility] [address] [place], [address] Urea nitrogen [Mass/Vol] 11 mg/dL Normal 7-18 [facility] Comment on above: Order Comment: Order Date: 04/12/24 Order Info: 0786-1 - CMP Order Info: 3016-3 - TSH Performed By: #### L 500.4050, L100.0100, L502.0250, L501.9520 #### [facility] [address] [place], [address] Microalb:Creat Ratio,Random URon 04-12-2024 Creatinine [Mass/Vol] 77.80 mg/dL Normal NO RANGE EST. [facility] Comment on above: Order Comment: Order Date: 04/12/24 Order Info: 0779-1 - MIACRE Performed By: #### L 500.4050, L100.0100, L502.0250, L501.9520 #### [facility] [address] [place], [address] MALB:CRE 6.9 mg/g CRE Normal <30 mg/g CRE [facility] Comment on above: Order Comment: Order Date: 04/12/24 Order Info: 0779-1 - MIACRE Performed By: #### L 500.4050, L100.0100, L502.0250, L501.9520 #### [facility] [address] [place], [address] MICROALBUMIN,UR 5.4 mg/L Normal NO RANGE EST. [facility] Comment on above: Order Comment: Order Date: 04/12/24 Order Info: 0779-1 - MIACRE Performed By: #### L 500.4050, L100.0100, L502.0250, L501.9520 #### [facility] [address] [place], [address] Thyroid Stim Hormone (TSH)on 04-12-2024 TSH 1.87 uIU/mL Normal 0.358-3.74 [facility] Comment on above: Order Comment: Order Date: 04/12/24 Order Info: 0786-1 - CMP Order Info: 3016-3 - TSH Performed By: #### L 500.4050, L100.0100, L502.0250, L501.9520 #### [facility] [address] [place], [place], [address] Absolute lymphocyte countOrd ered By: Bradley Gant on 06-24-2023 Lymphocytes Auto (Unsp spec) [#/Vol] 1.68 10*3/uL 0.83-4.51 [facility] Basophil percentageOrdered B y: Andrew Gregory on 06-24-2023 Bilirubin [Mass/Vol] 0.80 mg/dL 0.20-1.00 [facility] Comment on above: For patients on eltr ombopag therapy, use of Dimension [place] TBIL is not recommended. Protein [Mass/Vol] 7.4 g/dL 6.4-8.2 [facility] Basophil percentageOrdered B y: Bradley Gant on 06-24-2023 Basophils/100 WBC (Bld) 0.7 % 0-1 [facility] Chloride [Moles/Vol] 102 mmol/L 98-107 [facility] Cholesterol [Mass/Vol] 154 mg/dL <200 [facility] Comment on above: <200 mg/dL Desirable 200-240 mg/dL Borderline >240 mg/dL High Risk Eosinophils/100 WBC (Bld) 2.2 % 0-5 [facility] Glucose [Mass/Vol] 93 mg/dL 74-106 [facility] Neutrophils (Bld) [#/Vol] 4.5 10*3/uL 2.0-7.7 [facility] Neutrophils/100 WBC (Bld) 64.2 % 47-70 [facility] Potassium [Moles/Vol] 4.0 mmol/L 3.5-5.1 [facility] Sodium [Moles/Vol] 137 mmol/L 136-145 [facility] Triglyceride [Mass/Vol] 70 mg/dL <199 [facility] Comment on above: The drugs N-Acetylcy steine and Metamizole may falsely depress this assay.Serum Triglycerides Reference Interval Normal <150 mg/dL Borderline high 150 - 199 mg/dL High 200 - 499 mg/dL Very High > or = 500 mg/dL WBC (Bld) [#/Vol] 6.9 10*3/uL 4.4-11.0 [facility] Blood erythrocytes count (nu mber/volume)Ordered By: Bradley Gant on 06-24-2023 RBC (Bld) [#/Vol] 4.76 10*6/uL 4.2-5.4 [facility] Blood hemoglobin measurement (mass/volume)Ordered By: Bradley Gant on 06-24-2023 Hemoglobin (Bld) [Mass/Vol] 14.9 g/dL 12.0-15.0 [facility] Blood lymphocytes/100 leukoc ytesOrdered By: Bradley Gant on 06-24-2023 Lymphocytes/100 WBC (Bld) 24.2 % 19-41 [facility] Blood monocytes/100 leukocyt esOrdered By: Bradley Gant on 06-24-2023 Monocytes/100 WBC (Bld) 8.4 % 0-10 [facility] Determination of erythrocyte mean corpuscular volume (MCV)Ordered By: Bradley Gant on 06-24-2023 MCV (RBC) [Entitic vol] 97.7 fL 81-99 [facility] Direct bilirubinOrdered By: Andrew Gregory on 06-24-2023 Bilirubin.direct [Mass/Vol] 0.18 mg/dL 0.00-0.30 [facility] Hematocrit Auto (Bld) [Volum e fraction]Ordered By: Bradley Gant on 06-24-2023 Hematocrit (Bld) [Volume fraction] 46.5 % 37-47 [facility] - Chemistry and C hemistry - challengeOrdered By: Andrew Gregory on 06-24-2023 ALP [Catalytic activity/Vol] 68 U/L 45-117 [facility] ALT [Catalytic activity/Vol] 25 U/L 13-56 [facility] Globulin (S) [Mass/Vol] 3.7 g/dL 2.2-4.2 [facility] - Chemistry and C hemistry - challengeOrdered By: Bradley Gant on 06-24-2023 CO2 [Moles/Vol] 30.0 mmol/L 21.0-32.0 [facility] Urea nitrogen/Creatinine [Mass ratio] 12.1 mg/mg 10-20 [facility] - Hematology and Cell countsOrdered By: Bradley Gant on 06-24-2023 Erythrocyte distribution width (RBC) [Entitic vol] 45.5 fL 35.1-43.9 [facility] Erythrocyte distribution width (RBC) [Ratio] 12.6 % 11.6-14.6 [facility] Immature granulocytes/100 WBC (Bld) 0.300 % 0.0-0.9 [facility] Comment on above: IG% - Immature Granu locytes (promyelocytes, myelocytes and metamyelocytes) > 1% indicates that a LEFT SHIFT is Present. MCH (RBC) [Entitic mass] 31.3 pg 27.0-32.0 [facility] Nucleated RBC/100 WBC (Bld) [Ratio] 0 % 0-5 [facility] MCHC Auto (RBC) [Mass/Vol]Or dered By: Bradley Gant on 06-24-2023 MCHC (RBC) [Mass/Vol] 32.0 g/dL 32-36 [facility] No Panel InformationOrdered By: Bradley Gant on 06-24-2023 Estimated GFR (MDRD) Amer 96 mL/min >60 [facility] Comment on above: GFR Calc Estimated GFR (MDRD) Non-Af Amer 80 mL/min >60 [facility] Comment on above: Non- GFR Calc Platelets bldOrdered By: Jessica Gant on 06-24-2023 Platelets (Bld) [#/Vol] 147 10*3/uL 150-450 [facility] Serum or plasma albumin mary urement (mass/volume)Ordered By: Andrew Gregory on 06-24-2023 Albumin [Mass/Vol] 3.7 g/dL 3.2-5.0 [facility] Serum or plasma albumin/glob ulin mass ratioOrdered By: Bradley Gant on 06-24-2023 Albumin/Globulin [Mass ratio] 1.0 {ratio} 0.9-2.4 [facility] Serum or plasma calcium mary urement (mass/volume)Ordered By: Bradley Gant on 06-24-2023 Calcium [Mass/Vol] 8.7 mg/dL 8.5-10.1 [facility] Serum or plasma cholesterol in HDL measurement (mass/volume)Ordered By: Bradley Gant on 06-24-2023 Cholesterol in HDL [Mass/Vol] 52 mg/dL >40 [facility] Comment on above: The drugs N-Acetylcy steine and Metamizole may falsely depress this assay. Reference Range HDL <40 mg/dL Low HDL Cholesterol HDL >or= 60 mg/dL High HDL Cholesterol Serum or plasma cholesterol in VLDL measurement (mass/volume)Ordered By: Bradley Gant on 06-24-2023 Cholesterol in VLDL [Mass/Vol] 14 mg/dL 5-40 [facility] Serum or plasma creatinine m easurement (mass/volume)Ordered By: Bradley Gant on 06-24-2023 Creatinine [Mass/Vol] 0.82 mg/dL 0.55-1.02 [facility] Comment on above: The validity of the calculated GFR & GFRAA in patients over 70 years has not been determined. Clinical correlation is essential. Serum or plasma low density lipoprotein (LDL) cholesterol measurement (mass/volume)Ordered By: Bradley Gant on 06-24-2023 Cholesterol in LDL [Mass/Vol] 88 mg/dL 0-130 [facility] Serum or plasma urea nitroge n measurement (mass/volume)Ordered By: Bradley Gant on 06-24-2023 Urea nitrogen [Mass/Vol] 10 mg/dL 7-18 [facility] Thin prep Papanicolaou smear with manual screeningOrdered By: Andrew Gregory on 06-24-2023 Thin prep Papanicolaou smear with manual screening 12 U/L 15-37 [facility] Thin prep Papanicolaou smear with manual screeningOrdered By: Bradley Gant on 06-24-2023 Thin prep Papanicolaou smear with manual screening 5 5-15 [facility] DOMI SCREENING W Rui 07-19 [place] Basophil percentageon 2021 Bilirubin [Mass/Vol] 0.40 mg/dL 0.20-1.00 [facility] Work Phone: Comment on above: For patients on eltr ombopag therapy, use of Dimension [place] TBIL is not recommended. Protein [Mass/Vol] 7.8 g/dL 6.4-8.2 [facility] Work Phone: Direct bilirubinon 2 Bilirubin.direct [Mass/Vol] 0.12 mg/dL 0.00-0.30 [facility] Work Phone: HIV 1 and HIV-2 antibody ass ay with HIV-1 p24 antigen detectionon 07-15-2022 HIV 1+2 Ab+HIV1 p24 Ag IA Ql Non-Reactive Nonreactive [facility] Work Phone: Laboratory - Chemistry and C hemistry - challengeon 07-15-2022 ALP [Catalytic activity/Vol] 72 U/L 45-117 [facility] Work Phone: ALT [Catalytic activity/Vol] 25 U/L 13-56 [facility] Work Phone: Globulin (S) [Mass/Vol] 3.9 g/dL 2.2-4.2 [facility] Work Phone: No Panel Informationon 07-15 Hepatitis B Surface Antigen Non-Reactive Nonreactive [facility] Work Phone: Hepatitis C Antibody Non-Reactive Nonreactive [facility] Work Phone: Comment on above: Non Reactive: < 0.8 Equivocal: >/= 0.8 to < 1.0 Reactive: >/= 1.0The CDC recommends that a reactive/equivocal HCV antibody result be followed up by the HCV Nucleic Acid Amplificationtest (586021) Qualitative QuantiFERON-TB g old in tube teston 07-15-2022 M. tuberculosis tuberculin stim IFN-g Ql (Bld) 0.01 IU/mL . [facility] Work Phone: Serum hepatitis B virus core antibody detectionon 07-15-2022 HBV core Ab Ql (S) Negative Negative [facility] Work Phone: Comment on above: Performed at: [address] [id number] Director: Krishna Castellano PhD, Phone: [phone] Serum hepatitis B virus surf netta antibody IgG detectionon 07-15-2022 HBV surface IgG Ql (S) Reactive [facility] Work Phone: Comment on above: Non Reactive: Incons istent with immunity less than <10 mIU/mL Reactive: Consistent with immunity greater than or equal to 10 mIU/mL Serum or plasma albumin mary urement (mass/volume)on 07-15-2022 Albumin [Mass/Vol] 3.9 g/dL 3.2-5.0 [facility] Work Phone: Thin prep Papanicolaou smear with manual screeningon 07-15-2022 Thin prep Papanicolaou smear with manual screening 18 U/L 15-37 [facility] Work Phone: Thin prep Papanicolaou smear with manual screening Comment . [facility] Work Phone: Comment on above: QuantiFERON-TB Gold Plus is a qualitative indirect test forM tuberculosis infection (including disease) and isintended for use in conjunction with risk assessment,radiography, and other medical and diagnostic evaluations.The QuantiFERON-TB Gold Plus result is determined bysubtracting the Nil value from either TB antigen (Ag)value. The Mitogen tube serves as a control for the test. Thin prep Papanicolaou smear with manual screening 0.02 IU/mL . [facility] Work Phone: Thin prep Papanicolaou smear with manual screening > 10.00 IU/mL . [facility] Work Phone: Thin prep Papanicolaou smear with manual screening Negative Negative [facility] Work Phone: Comment on above: No response to M tub erculosis antigens detected.Infection with M tuberculosis is unlikely, but high riskindividuals should be considered for additional testing(ATS/IDSA/CDC Clinical Practice Guidelines, 2017). Thereference range is an Antigen minus Nil result of <0.35IU/mL.The specimen received for QuantiFERON testing was incubatedby the ordering institution. Specific procedures outlinedin our Directory of Services and in the package insert forthe QuantiFERON Gold (In Tube) test must be followed toenable for proper stimulation of cells for the productionof interferon gamma. Chemiluminescence immunoassaymethodology Absolute lymphocyte counton 06-22-2022 Lymphocytes Auto (Unsp spec) [#/Vol] 1.88 10*3/uL 0.83-4.51 [facility] Work Phone: Basophil percentageon 2021 Basophils/100 WBC (Bld) 0.9 % 0-1 [facility] Work Phone: Eosinophils/100 WBC (Bld) 2.3 % 0-5 [facility] Work Phone: Glucose [Mass/Vol] 93 mg/dL 74-106 [facility] Work Phone: Neutrophils (Bld) [#/Vol] 3.9 10*3/uL 2.0-7.7 [facility] Work Phone: Neutrophils/100 WBC (Bld) 59.5 % 47-70 [facility] Work Phone: WBC (Bld) [#/Vol] 6.6 10*3/uL 4.4-11.0 [facility] Work Phone: Blood erythrocytes count (nu mber/volume)on 06-22-2022 RBC (Bld) [#/Vol] 4.78 10*6/uL 4.2-5.4 [facility] Work Phone: Blood hemoglobin measurement (mass/volume)on 06-22-2022 Hemoglobin (Bld) [Mass/Vol] 14.6 g/dL 12.0-15.0 [facility] Work Phone: Blood lymphocytes/100 leukoc yteson 06-22-2022 Lymphocytes/100 WBC (Bld) 28.4 % 19-41 [facility] Work Phone: Blood monocytes/100 leukocyt eson 06-22-2022 Monocytes/100 WBC (Bld) 8.6 % 0-10 [facility] Work Phone: Blood platelet mean volumeon 06-22-2022 Platelet mean volume (Bld) [Entitic vol] 13.9 fL 6.2-12.0 [facility] Work Phone: Determination of erythrocyte mean corpuscular volume (MCV)on 06-22-2022 MCV (RBC) [Entitic vol] 94.1 fL 81-99 [facility] Work Phone: Hematocrit Auto (Bld) [Volum e fraction]on 06-22-2022 Hematocrit (Bld) [Volume fraction] 45.0 % 37-47 [facility] Work Phone: Laboratory - Chemistry and C hemistry - challengeon 06-22-2022 ALT [Catalytic activity/Vol] 22 U/L 13-56 [facility] Work Phone: Laboratory - Hematology and Cell countson 06-22-2022 Erythrocyte distribution width (RBC) [Entitic vol] 44.1 fL 35.1-43.9 [facility] Work Phone: Erythrocyte distribution width (RBC) [Ratio] 12.7 % 11.6-14.6 [facility] Work Phone: Immature granulocytes/100 WBC (Bld) 0.300 % 0.0-0.9 [facility] Work Phone: Comment on above: IG% - Immature Granu locytes (promyelocytes, myelocytes and metamyelocytes) > 1% indicates that a LEFT SHIFT is Present. MCH (RBC) [Entitic mass] 30.5 pg 27.0-32.0 [facility] Work Phone: Nucleated RBC/100 WBC (Bld) [Ratio] 0 % 0-5 [facility] Work Phone: MCHC Auto (RBC) [Mass/Vol]on 06-22-2022 MCHC (RBC) [Mass/Vol] 32.4 g/dL 32-36 [facility] Work Phone: No Panel Informationon 06-22 Estimated GFR (MDRD) Amer 99 mL/min >60 [facility] Work Phone: Comment on above: GFR Calc Estimated GFR (MDRD) Non-Af Amer 82 mL/min >60 [facility] Work Phone: Comment on above: Non- GFR Calc Thyroid Stimulating Hormone (TSH) 2.05 uIU/mL 0.358-3.74 [facility] Work Phone: Platelets bldon 06-22-2022 Platelets (Bld) [#/Vol] 143 10*3/uL 150-450 [facility] Work Phone: Serum or plasma creatinine m easurement (mass/volume)on 06-22-2022 Creatinine [Mass/Vol] 0.81 mg/dL 0.55-1.02 [facility] Work Phone: Comment on above: The validity of the calculated GFR & GFRAA in patients over 70 years has not been determined. Clinical correlation is essential. Vital Signs Date Time Vital Sign Value Performing Clinician Faci lity 10-02-2024 08:08-0500 Body height 170.7 cm Easton Bautista MD Work Phone: [place] 10-02-2024 08:08-0500 Body mass index (BMI) [Ratio] 39.35 kg/m2 Easton Bautista MD Work Phone: [place] 10-02-2024 08:08-0500 Body weight 114.67 kg Easton Bautista MD Work Phone: [place] 10-02-2024 08:08-0500 Diastolic blood pressure 76 mm[Hg] Easton Bautista MD Work Phone: [place] 10-02-2024 08:08-0500 Systolic blood pressure 124 mm[Hg] Easton Bautista MD Work Phone: [place] 07-19-2022 08:33-0500 Body height 169.5 cm Easton Bautista MD Work Phone: [place] 07-19-2022 08:33-0500 Body weight 103.42 kg Easton Bautista MD Work Phone: [place] 07-19-2022 08:33-0500 Diastolic blood pressure 84 mm[Hg] Easton Bautista MD Work Phone: [place] 07-19-2022 08:33-0500 Systolic blood pressure 122 mm[Hg] Easton Bautista MD Work Phone: [place] Encounters Encounter Date Encounter Type Care Provider Facility Start: 12-25-2024 End: 12-25-[address] Bradley Gant MD Work Phone: [facility] Work Phone: Start: 12-25-2024 End: 12-25-[address] Bradley Gant MD -Laboratory, [facility] Start: 12-25-2024 End: 12-25-2024 ambulatory Bradley Gant Facility:[facility] Start: 10-02-2024 End: 10-02-2024 ambulatory EASTON BAUTISTA Facility:[facility] Start: 10-02-2024 End: 10-02-2024 Patient encounter procedure Easton Bautista MD Work Phone: OB/Gynecology Comment on above: Encounter for gyneco logical examination (general) (routine) without abnormal findings (Primary Dx); Screening for cervical cancer; Encounter for screening for human papillomavirus (HPV); Encounter for screening mammogram for breast cancer; Encounter for screening for malignant neoplasm of colon Start: 10-02-2024 End: 10-02-2024 Patient encounter status Easton Bautista MD Work Phone: [place] Start: 10-02-2024 End: 10-02-2024 ambulatory AESTON BAUTISTA Facility:[facility] Start: 10-02-2024 Encounter for gynecological examination (general) (routine) without abnormal findings EASTON BAUTISTA [facility] Start: 10-02-2024 End: 10-02-2024 Patient encounter status Screen [facility] Start: 10-02-2024 End: 10-02-2024 Subsequent [facility] physician [facility] Comment on above: Encounter for gyneco logical examination (general) (routine) without abnormal findings [Z01.419] Start: 05-16-2024 End: 05-16-2024 ambulatory Andrew Gregory Facility:[facility] Start: 04-12-2024 End: 04-12-2024 ambulatory Bradley Gant Facility:[facility] Start: 08-08-2023 Documentation procedure Mammog jacob Coordinator [facility] Start: 08-08-2023 Letter encounter Mammography Coordinator [place] Department Start: 08-03-2023 End: 08-03-2023 [facility] Start: 08-03-2023 End: 08-03-2023 Subsequent hospital visit by physician Screen Mammo [facility] Comment on above: Encounter for gyneco logical examination (general) (routine) without abnormal findings [Z01.419] Start: 06-24-2023 End: 06-24-2023 ambulatory [facility] Work Phone: Start: 06-24-2023 End: 06-24-2023 Patient encounter procedure [facility] Start: 05-02-2023 ambulatory Easton little MD Work Phone: [facility] Start: 05-02-2023 Patient encounter procedure Easton Bautista MD Work Phone: OB/Gynecology Comment on above: Appointment Start: 07-20-2022 Documentation procedure Mammog jacob Coordinator [facility] Start: 07-20-2022 Letter encounter Mammography Coordinator [place] [facility] Start: 07-19-2022 End: 07-19-2022 Patient encounter procedure Easton Bautista MD Work Phone: OB/Gynecology Comment on above: Encounter for gyneco logical examination (general) (routine) without abnormal findings (Primary Dx); Encounter for screening mammogram for breast cancer; Family history of malignant neoplasm of ovary Start: 07-19-2022 End: 07-19-2022 Patient encounter status Easton Bautista MD Work Phone: OB/Gynecology Start: 07-19-2022 End: 07-19-2022 Subsequent hospital visit by physician Screen Mammo [facility] Comment on above: Encounter for gyneco logical examination (general) (routine) without abnormal findings [Z01.419] Start: 07-15-2022 End: 07-15-2022 ambulatory [facility] Work Phone: Start: 07-15-2022 End: 07-15-2022 Patient encounter procedure [facility] Start: 06-22-2022 End: 06-22-2022 ambulatory [facility] Work Phone: Start: 06-22-2022 End: 06-22-2022 Patient encounter procedure [facility] Start: 04-05-2022 ambulatory Easton little MD Work Phone: [facility] Start: 04-05-2022 Patient encounter procedure Easton Bautista MD Work Phone: OB/Gynecology Comment on above: Annual Pap and Mammo gram Start: 07-23-2013 End: 09-11-2013 Patient requested procedure Easton Bautista MD Work Phone: [place] Procedures Date Procedure Procedure Detail Performing Clinician Start: 10-02-2024 Screening digital br east tomosynthesis bi Easton Bautista MD Work Phone: Start: 07-19-2022 DOMI SCREENING W NBA Re philip Bautista MD Work Phone: Start: 07-19-2022 Mammography Mammograph y Coordinator Start: 06-29-2021 Mammography Easton mcmanus MD Work Phone: Start: 08-31-2018 Adult depression scr eening assessment Easton Bautista MD Work Phone: Start: 04-10-2013 Lipid 1996 panel - S prisca or Plasma Easton Bautista MD Work Phone: Plan of Treatment Date Care Activity Detail Author Start: 06-22-2032 Urine microalbumin profile DTaP,Tdap,Td Vaccine (13 - Td or Tdap) [place] Start: 10-02-2025 Screening for malign ant neoplasm of breast Mammogram Screening [place] Start: 06-23-2025 HPV TESTING HPV TESTING [place] Start: 06-23-2025 PAP TESTING PAP TESTING [place] Start: 06-23-2025 Screening for malign ant neoplasm of cervix Cervical Cancer Screening [place] Start: 08-03-2024 Mammography Mammogram Screening [facility] Start: 05-13-2024 Covid-19 Vaccine () Covid-19 Vaccine () [place] Start: 11-17-2023 Diabetes Screening Diabetes Screenin g [place] Start: 11-17-2023 Lipid panel Lipid Screening [facility] Start: 11-17-2023 Screening for malign ant neoplasm of colon [place] Start: 07-19-2023 Mammography [place] Start: 05-13-2023 Covid-19 Vaccine ( season) Covid-19 Vaccine () [place] Start: 05-13-2023 Influenza vaccination [facility] Start: 09-12-2022 [facility] [place] Start: 06-29-2022 Mammography MAMMOGRAM [place] Start: 05-13-2022 Influenza vaccination INFLUENZA (#1) [place] Start: 2021 Urine microalbumin profile DTAP,TDAP,TD (8 - Td or Tdap) [place] Start: 09-12-2021 DEPRESSION ASSESSMENT DEPRESSION ASS ESSMENT [place] Start: 04-22-2021 COVID-19 VACCINE (3 - Booster for Moderna series) COVID-19 VACCINE (3 - Booster for Moderna series) [place] Start: 08-31-2019 Adult depression screening assessment DEPRESSION SCREENING [place] Start: 07-31-1999 Hepatitis B Vaccine (2 of 3 - 3-dose series) Hepatitis B Vaccine (2 of 3 - 3-dose series) [place] Start: 1996 Anxiety Screening Anxiety Screening [place] Start: 1996 Depression Screening Depression Scre ening [place] Start: 1996 HEPATITIS C SCREENING HEPATITIS C [facility] Start: 1996 Hepatitis C screening Hepatitis C [facility] Start: 1978 HEPATITIS B (1 of 3 - 3-dose series) HEPATITIS B (1 of 3 - 3-dose series) [place] COLOGUARD COLOGUARD Lab Ro caroline Encounter for screening for malignant neoplasm of colon Ordered: 10/02/2024 [place] Comment on above: Ordered: 10/02/2024 End: 11-01-2025 DBT Breast - bilateral screening ODMI SCREENING W [facility] Routine Encounter for gynecological examination (general) (routine) without abnormal findings Encounter for screening mammogram for breast cancer 1 Occurrences starting 10/02/2024 until 11/01/2025 [facility] Work Phone: Comment on above: 1 Occurrences starti ng 10/02/2024 until 11/01/2025 In-vitro immunologic test [facility] End: 08-18-2023 DOMI SCREENING W NBA DOMI SCREENING W [facility] Radiology Routine Encounter for gynecological examination (general) (routine) without abnormal findings Encounter for screening mammogram for breast cancer 1 Occurrences starting 07/19/2022 until 08/18/2023 [facility] Work Phone: Comment on above: 1 Occurrences starti ng 07/19/2022 until 08/18/2023 DOMI SCREENING W NBA DOMI SCREENI NG W [facility] Rad[facility] Routine Encounter for gynecological examination (general) (routine) without abnormal findings Encounter for screening mammogram for breast cancer 08/03/2023 7:42 AM EST [facility] Work Phone: Mycobacterium tuberculosis tuberculin stimulated gamma interferon [Presence] in Blood [facility] PAP TEST PAP TEST Lab Ana Paula singh Encounter for gynecological examination (general) (routine) without abnormal findings Screening for cervical cancer Encounter for screening for human papillomavirus (HPV) 10/02/2024 9:30 AM EST [facility] Immunizations Immunization Date Immunization Notes Care Provider Fa cili 06-22-2022 influenza virus vaccine, unspecified formulation Screen Wstr [place] 06-14-2018 influenza, injectabl e, quadrivalent, contains preservative Easton Bautista MD Work Phone: [place] 11-17-2011 tetanus toxoid, redu za diphtheria toxoid, and acellular pertussis vaccine, adsorbed Easton Bautista MD Work Phone: [place] 03-11-2006 diphtheria, tetanus toxoids and acellular pertussis vaccine Easton Bautista MD Work Phone: [place] 02-27-1994 diphtheria and tetan us toxoids, adsorbed for pediatric use Easton Bautista MD Work Phone: [place] Work Phone: 12-28-1991 measles, mumps and rubella virus vaccine Easton Bautista MD Work Phone: [place] Work Phone: 04-01-1984 tuberculin skin test ; purified protein derivative solution, intradermal Easton Bautista MD Work Phone: [place] 05-20-1983 tuberculin skin test ; purified protein derivative solution, intradermal Easton Bautista MD Work Phone: [place] 02-13-1981 diphtheria, tetanus toxoids and pertussis vaccine Easton Bautista MD Work Phone: [place] Work Phone: 02-13-1981 trivalent poliovirus vaccine, live, oral Easton Bautista MD Work Phone: [place] Work Phone: 08-05-1980 diphtheria, tetanus toxoids and pertussis vaccine Easton Bautista MD Work Phone: [place] Work Phone: 08-05-1980 trivalent poliovirus vaccine, live, oral Easton Bautista MD Work Phone: [place] Work Phone: 03-25-1980 measles, mumps and rubella virus vaccine Easton Bautista MD Work Phone: [place] Work Phone: 08-25-1979 tuberculin skin test ; purified protein derivative solution, intradermal Easton Bautista MD Work Phone: [place] 07-12-1979 diphtheria, tetanus toxoids and pertussis vaccine Easton Bautista MD Work Phone: [place] Work Phone: 06-12-1979 trivalent poliovirus vaccine, live, oral Easton Bautista MD Work Phone: [place] Work Phone: 05-10-1979 diphtheria, tetanus toxoids and pertussis vaccine Easton Bautista MD Work Phone: [place] Work Phone: 03-14-1979 diphtheria, tetanus toxoids and pertussis vaccine Easton Bautista MD Work Phone: [place] Work Phone: 03-14-1979 trivalent poliovirus vaccine, live, oral Easton Bautista MD Work Phone: [place] Work Phone: Payers Date Payer Category Payer Self-pay [id number] 2023 Private Health Insurance [id number] 2022 Private Health Insurance [id number] 2011 Private Health Insurance [employer] Kyle REYESNA TREVOR POS II [id number] 2011-Present [phone] [address] [place] [address] POS [id number] 2011 Private Health Insurance [employer] [id number] 2008 Unknown [facility] [id number] 2008-Present [phone] [address] [place] [address] [id number] Unknown [id number] Unknown [id number] Unknown [id number] Social History Date Type Detail Facility Start: 01-25-2011 End: 09-23-2023 Tobacco smoking status NDIS Never smoked tobacco [place] Start: 06-30-2021 End: 10-02-2024 Alcohol intake Current non-drinker of alcohol (finding) [place] Start: 1980 Sex Assigned At Not on file [facility] Start: 07-04-2019 End: 07-04-2019 Tobacco smoking status NDIS Unknown if ever smoked [facility] Start: 11-14-2015 None [facility] Start: 11-14-2015 Non-smoker [facility] Start: 1980 Sex Assigned At Female [facility] Start: 01-25-2011 End: 09-30-2023 Tobacco use and exposure Smokeless tobacco non-user [place] Work Phone: Start: 07-09-2022 End: 07-19-2022 Exposure to SARS-CoV-2 (event) Not sure [place] Start: 07-19-2022 End: 08-03-2023 History of Social function [place] Start: 07-19-2022 End: 08-03-2023 Tobacco use panel [place] Adult Depression Screening Assessment 1 [place] Start: 12-31-2024 Sex Female (finding) [facility] Clinical Notes 12-27-2013 to 10-02-2024 Easton Bautista MD - 10/02/2024 7:59 AM ESTSSoniya villanueva, Mammo Tech - 10/02/2024 7:30 AM ESTLetter - Coordinator, Mammography - 08/08/2023 7:56 AM EST Note Date & Type Note Facility 10-02-2024 Note HNO ID: [id number] Author: EASTON BAUTISTA MD Service: ? Author Type: Physician Type: Progress Notes Filed: 10/02/2024 09:02 Note Text: Patient declined land use planner. Pamela is a 43 year old who presents for an annual gynecologic exam without complaints. Light menses regualarly w/ IUD and some spotting.Same as last year. Contraception: IUD Contraception frequency: Always HPV vaccine: No HPV:negative 06/23/2020 Last pap smear: 06/23/2020, negative History of abnormal pap: No Colposcopy: No. Leep: No. Cone biopsy: No. Bothersome pelvic pain: No Last mammogram: 2024 result pending with visit. OB History T1 L2 SAB1 IAB0 Ectopic0 Multiple0 Live Births2 Brand Coordinator History LMP: 05/28/2019, IUD Age at Menarche: Age at First : Age at Menopause: Brand Coordinator History Comments: Sexual Activity: Yes; Male Contraception: I.U.D. 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 Rosacea 05/17/2018 Thrombocytopenia (HCC) 02/09/06 PAST SURGICAL HISTORY Procedure Laterality Date EXC BREAST LES PREOP PLMT RAD MARKER OPEN 1 LES Right 07/06/2019 INSERTION OF IUD 02/14/2019 Mirena OVARIAN CYSTECTOMY UNI/BI 01/13/10 left ovarian cystecomy-hemorrhagic PAST SURGICAL HISTORY OF HYMENECTOMY PAST SURGICAL HISTORY OF 04/2010 excision of skin lesion from face PAST SURGICAL HISTORY OF 10/2015 See scanned documents UNSPECIFIED ORAL SURGERY PROCEDURE, BY REPORT WISDOM TEETH EXTRACTION FAMILY HISTORY Problem Relation Age of Onset Cancer Mother OVARIAN CANCER Colon Cancer Mother Uterine Cancer as well, small bowel obstruction Hypertension Father Lipids Father High Cholesterol Heart Maternal Grandmother Cardiopulmonary Arrest Heart Maternal Grandfather Cardiac Arrest, Arteriosclerotic Heart Disease Diabetes Paternal Grandmother Hypertension Paternal Grandmother Heart Paternal Grandfather [place] SOCIAL HISTORY Social History Tobacco Use Smoking status: Never Smokeless tobacco: Never Vaping Use Vaping status: Never Used Substance Use Topics Alcohol use: No Drug use: No REVIEW OF SYSTEMS Abdomen: No abdominal pain, nausea, vomiting, diarrhea, or constipation. No bloating, early satiety, indigestion, or increased flatulence. Bladder: No dysuria, gross hematuria, urinary frequency, urinary urgency, or incontinence. Breast: No breast lumps, nipple d/c, overlying skin changes, redness or skin retraction. Allergies and current medication updated:Yes SENSITIVE EXAM: The sensitive examination was discussed with the Patient or Patient's Authorized Derrick Boat Operator. As applicable, any other physician, advance practice provider, medical student, or other health professional student that will be observing or involved in the sensitive examination for educational or training purposes was discussed with the Patient or Authorized Derrick Boat Operator. The Patient or Authorized Derrick Boat Operator has agreed to proceed with the sensitive examination. (Sensitive examination includes inspection and/or palpation of the breasts, pelvis, prostate and anorectal regions). EXAM: LMP 05/28/2019 GENERAL: pleasant, female in no apparent distress HEENT: Normocephalic, atraumatic, mucus membranes moist, and no lesions NECK: Supple, full range of motion, no adenopathy, and thyroid normal DERMATOLOGY: Normal, without lesions, non-icteric, and non-hirsute BREAST: soft, non-tender, symmetric, no dominant mass, normal nipple-areolar complex, no lymphadenopathy, and no nipple discharge CHEST: Normal inspiratory effort ABDOMEN: soft, non-tender, and no masses PELVIC: external genitalia normal, normal Bartholin's glands, urethra, Cloverdale's glands, no vulvar lesions, no cervical lesions, good vaginal support, physiologic discharge present, normal appearing perineal body and perianal region BIMANUAL: uterus normal size, shape and consistency, no adnexal masses, and non-tender RECTOVAGINAL: deferred. NEURO: alert and oriented x3,exam grossly non-focal EXTREMITIES: normal ASSESSMENT/PLAN: 1) Health maintenance: Pap done with HPV. Mammogram ordered. Colon cancer screening: desires cologuard 2) Contraception: IUD. Contraceptive options reviewed and information provided. 3) STD screening: Declined STD check. 4) Follow up one year or sooner as needed Easton Bautista MD [facility] 10-02-2024 History of Presen t illness Narrative Patient declined land use planner. Pamela is a 43 year old who presents for an annual gynecologic exam without complaints. Light menses regualarly w/ IUD and some spotting.Same as last year. Contraception: IUD Contraception frequency: Always HPV vaccine: No HPV:negative 06/23/2020 Last pap smear: 06/23/2020, negative History of abnormal pap: No Colposcopy: No. Leep: No. Cone biopsy: No. Bothersome pelvic pain: No Last mammogram: 2024 result pending with visit. OB History T1 L2 SAB1 IAB0 Ectopic0 Multiple0 Live Births2 Brand Coordinator History LMP: 05/28/2019, IUD Age at Menarche: Age at First : Age at Menopause: Brand Coordinator History Comments: Sexual Activity: Yes; Male Contraception: I.U.D. 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 Rosacea 05/17/2018 Thrombocytopenia (HCC) 02/09/06 PAST SURGICAL HISTORY Procedure Laterality Date EXC BREAST LES PREOP PLMT RAD MARKER OPEN 1 LES Right 07/06/2019 INSERTION OF IUD 02/14/2019 Mirena OVARIAN CYSTECTOMY UNI/BI 01/13/10 left ovarian cystecomy-hemorrhagic PAST SURGICAL HISTORY OF HYMENECTOMY PAST SURGICAL HISTORY OF 04/2010 excision of skin lesion from face PAST SURGICAL HISTORY OF 10/2015 See scanned documents UNSPECIFIED ORAL SURGERY PROCEDURE, BY REPORT WISDOM TEETH EXTRACTION FAMILY HISTORY Problem Relation Age of Onset Cancer Mother OVARIAN CANCER Colon Cancer Mother Uterine Cancer as well, small bowel obstruction Hypertension Father Lipids Father High Cholesterol Heart Maternal Grandmother Cardiopulmonary Arrest Heart Maternal Grandfather Cardiac Arrest, Arteriosclerotic Heart Disease Diabetes Paternal Grandmother Hypertension Paternal Grandmother Heart Paternal Grandfather [place] SOCIAL HISTORY Social History Tobacco Use Smoking status: Never Smokeless tobacco: Never Vaping Use Vaping status: Never Used Substance Use Topics Alcohol use: No Drug use: No REVIEW OF SYSTEMS Abdomen: No abdominal pain, nausea, vomiting, diarrhea, or constipation. No bloating, early satiety, indigestion, or increased flatulence. Bladder: No dysuria, gross hematuria, urinary frequency, urinary urgency, or incontinence. Breast: No breast lumps, nipple d/c, overlying skin changes, redness or skin retraction. Allergies and current medication updated:Yes SENSITIVE EXAM: The sensitive examination was discussed with the Patient or Patient's Authorized Derrick Boat Operator. As applicable, any other physician, advance practice provider, medical student, or other health professional student that will be observing or involved in the sensitive examination for educational or training purposes was discussed with the Patient or Authorized Derrick Boat Operator. The Patient or Authorized Derrick Boat Operator has agreed to proceed with the sensitive examination. (Sensitive examination includes inspection and/or palpation of the breasts, pelvis, prostate and anorectal regions). EXAM: LMP 05/28/2019 GENERAL: pleasant, female in no apparent distress HEENT: Normocephalic, atraumatic, mucus membranes moist, and no lesions NECK: Supple, full range of motion, no adenopathy, and thyroid normal DERMATOLOGY: Normal, without lesions, non-icteric, and non-hirsute BREAST: soft, non-tender, symmetric, no dominant mass, normal nipple-areolar complex, no lymphadenopathy, and no nipple discharge CHEST: Normal inspiratory effort ABDOMEN: soft, non-tender, and no masses PELVIC: external genitalia normal, normal Bartholin's glands, urethra, Cloverdale's glands, no vulvar lesions, no cervical lesions, good vaginal support, physiologic discharge present, normal appearing perineal body and perianal region BIMANUAL: uterus normal size, shape and consistency, no adnexal masses, and non-tender RECTOVAGINAL: deferred. NEURO: alert and oriented x3,exam grossly non-focal EXTREMITIES: normal ASSESSMENT/PLAN: 1) Health maintenance: Pap done with HPV. Mammogram ordered. Colon cancer screening: desires cologuard 2) Contraception: IUD. Contraceptive options reviewed and information provided. 3) STD screening: Declined STD check. 4) Follow up one year or sooner as needed Easton Bautista MD documented in this encounter [facility] 10-02-2024 History of Presen t illness Narrative Radiology Service Progress Note PATIENT NAME: Pamela Nava DATE OF SERVICE: October 02, 2024 TIME: 7:24 AM PATIENT IDENTITY VERIFICATION COMPLETED USING TWO (2) IDENTIFIERS: Name and Date of confirmed by patient verbally. FALL SCREENING: Has the patient had 2 falls in the last year or 1 fall with injury or currently using an Ambulatory Assistive Device (Walker, Cane, Wheelchair, Crutches, etc.)? No PATIENT GENDER DATA: Assigned female at . status: : No status: NO. PATIENT RELEVANT IMPLANT DATA REVIEWED: Not Applicable PATIENT PRESENTS WITH AN IMPLANTABLE OR ATTACHED LIABILITY CLAIMS MANAGER: No RADIOLOGY DEPARTMENT: Mammography PERIPHERAL IV DATA: Not applicable SIGNED BY: Fady Manzanares October 02, 2024 7:24 AM documented in this encounter [facility] 10-02-2024 Note HNO ID: [id number] Author: SONIYA CORRIGAN Mammo Tech Service: ? Author Type: Garbage Collector Supervisor Type: Progress Notes Filed: 10/02/2024 07:25 Note Text: Radiology Service Progress Note PATIENT NAME: Pamela Nava DATE OF SERVICE: October 02, 2024 TIME: 7:24 AM PATIENT IDENTITY VERIFICATION COMPLETED USING TWO (2) IDENTIFIERS: Name and Date of confirmed by patient verbally. FALL SCREENING: Has the patient had 2 falls in the last year or 1 fall with injury or currently using an Ambulatory Assistive Device (Walker, Cane, Wheelchair, Crutches, etc.)? No PATIENT GENDER DATA: Assigned female at . status: : No status: NO. PATIENT RELEVANT IMPLANT DATA REVIEWED: Not Applicable PATIENT PRESENTS WITH AN IMPLANTABLE OR ATTACHED LIABILITY CLAIMS MANAGER: No RADIOLOGY DEPARTMENT: Mammography PERIPHERAL IV DATA: Not applicable SIGNED BY: Fady Manzanares October 02, 2024 7:24 AM [facility] 08-08-2023 Miscellaneous Notes August 08, 2023 PID: [id number] Pamela WrightSimeon Nava [address] [place] [address] Dear Ms. Elijah, We are pleased to inform you that the results of your recent breast imaging exam on 08/03/2023 are normal. Your mammogram demonstrates that you have dense breast tissue, which could hide abnormalities. Dense breast tissue, in and of itself, is a relatively common condition. Therefore, this information is not provided to cause undue concern; rather, it is to raise your awareness and promote discussion with your health care provider regarding the presence of dense breast tissue in addition to other risk factors. Early detection of cancer is very important. We also understand recommendations regarding breast cancer screening are controversial. Please discuss with your primary care provider which strategy is best for you and whether a mammogram is right for you. Your imaging studies and report will be kept on file at [facility] as part of your permanent medical record and are available for your continuing care. Thank you for allowing us to help in meeting your health care needs. Sincerely, Dr. Barriga Interpreting Radiologist [facility] (Normal over 40) documented in this encounter [facility] 08-03-2023 History of Presen t illness Narrative Radiology Service Progress Note PATIENT NAME: Pamela Nava DATE OF SERVICE: August 03, 2023 TIME: 7:06 AM PATIENT IDENTITY VERIFICATION COMPLETED USING TWO (2) IDENTIFIERS: Name and Date of confirmed by patient verbally. FALL SCREENING: Has the patient had 2 falls in the last year or 1 fall with injury or currently using an Ambulatory Assistive Device (Walker, Cane, Wheelchair, Crutches, etc.)? No PATIENT GENDER DATA: Female. status: : No status: NO. PATIENT RELEVANT IMPLANT DATA REVIEWED: Not Applicable RADIOLOGY DEPARTMENT: Mammography PERIPHERAL IV DATA: Not applicable SIGNED BY: Tal Manzanareso Anjana August 03, 2023 7:06 AM documented in this encounter [facility] 05-02-2023 Miscellaneous Notes Pss staff, can you please assist pt in getting her scheduled for her mammogram and yearly appt. Lolis Sorenson LPN documented in this encounter [facility] 07-20-2022 Miscellaneous Notes July 20, 2022 PID: [id number] Pamela Nava [address] [place] [address] Dear Ms. Nava, We are pleased to inform you that the results of your recent breast imaging exam on 07/19/2022 are normal. Your mammogram demonstrates that you have dense breast tissue, which could hide abnormalities. Dense breast tissue, in and of itself, is a relatively common condition. Therefore, this information is not provided to cause undue concern; rather, it is to raise your awareness and promote discussion with your health care provider regarding the presence of dense breast tissue in addition to other risk factors. Early detection of cancer is very important. We also understand recommendations regarding breast cancer screening are controversial. Please discuss with your primary care provider which strategy is best for you and whether a mammogram is right for you. Your imaging studies and report will be kept on file at [facility] as part of your permanent medical record and are available for your continuing care. Thank you for allowing us to help in meeting your health care needs. Sincerely, Dr. Joseph Interpreting Radiologist [facility] (Normal over 40) documented in this encounter [facility] 07-19-2022 History of Presen t illness Narrative Pamela is a 41 year old who presents for an annual gynecologic exam without complaints. Patient has a mirena IUD in place since 2019. The patient has spotting for 4-5 days each month. She denies hot flashes, night sweats, and vaginal dryness. Menses: cycles every 28-30 days and 4-5 days of light flow. Contraception: IUD HPV vaccine: No Last Pap: 06/27/2020 normal HPV: 06/27/2020 negative History of abnormal pap: No Last mammogram: 2021 results pending; performed 07/19/22 Sexually active: Yes; one male partner History of STDS: None Patient concerns for STD exposure: No. Time with current partner: one male partner for 24 years History of fibroids: No History of ovarian cyst: Yes, Pain with intercourse: No Hot flashes: No Night sweats: No Vaginal dryness: No OB History T1 L2 SAB1 IAB0 Ectopic0 Multiple0 Live Births2 Brand Coordinator History LMP: 05/28/2019, IUD Age at Menarche: Age at First : Age at Menopause: Brand Coordinator History Comments: Sexual Activity: Yes; Male Contraception: I.U.D. 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 Rosacea 05/17/2018 Thrombocytopenia (HCC) 02/09/06 PAST SURGICAL HISTORY Procedure Laterality Date EXC BREAST LES PREOP PLMT RAD MARKER OPEN 1 LES Right 07/06/2019 INSERTION OF IUD 02/14/2019 Mirena OVARIAN CYSTECTOMY UNI/BI 01/13/10 left ovarian cystecomy-hemorrhagic PAST SURGICAL HISTORY OF HYMENECTOMY PAST SURGICAL HISTORY OF 04/2010 excision of skin lesion from face PAST SURGICAL HISTORY OF 10/2015 See scanned documents UNSPECIFIED ORAL SURGERY PROCEDURE, BY REPORT WISDOM TEETH EXTRACTION FAMILY HISTORY Problem Relation Age of Onset Cancer Mother OVARIAN CANCER Colon Cancer Mother Uterine Cancer as well, small bowel obstruction Hypertension Father Lipids Father High Cholesterol Heart Maternal Grandmother Cardiopulmonary Arrest Heart Maternal Grandfather Cardiac Arrest, Arteriosclerotic Heart Disease Diabetes Paternal Grandmother Hypertension Paternal Grandmother Heart Paternal Grandfather MT SOCIAL HISTORY Social History Tobacco Use Smoking status: Never Smokeless tobacco: Never Vaping Use Vaping Use: Never used Substance Use Topics Alcohol use: No Drug use: No REVIEW OF SYSTEMS Abdomen: No abdominal pain, nausea, vomiting, diarrhea, or constipation. No bloating, early satiety, indigestion, or increased flatulence. Bladder: No dysuria, gross hematuria, urinary frequency, urinary urgency, or incontinence. Breast: No breast lumps, nipple d/c, overlying skin changes, redness or skin retraction. Allergies and current medication updated:Yes EXAM: BP 122/84 Ht 5' 6.75 (1.70m) Wt 228 lb (103.4kg) LMP 05/28/2019 BMI 36.00 kg/(m^2). GENERAL: pleasant, female in no apparent distress HEENT: Normocephalic, atraumatic, mucus membranes moist, and no lesions NECK: Supple, full range of motion, no adenopathy, and thyroid normal DERMATOLOGY: Normal, without lesions, non-icteric, and non-hirsute BREAST: soft, non-tender, symmetric, no dominant mass, normal nipple-areolar complex, no lymphadenopathy, and no nipple discharge CHEST: Normal inspiratory effort ABDOMEN: soft, non-tender, and no masses PELVIC: external genitalia normal, normal Bartholin's glands, urethra, Cloverdale's glands, no vulvar lesions, no cervical lesions, good vaginal support, physiologic discharge present, normal appearing perineal body and perianal region BIMANUAL: uterus normal size, shape and consistency, no adnexal masses, and non-tender RECTOVAGINAL: deferred. NEURO: alert and oriented x3,exam grossly non-focal EXTREMITIES: normal ASSESSMENT/PLAN: 1) Health maintenance: Pap/HPV up to date. Mammogram up to date . d/w 2) Contraception: IUD. Contraceptive options reviewed and information provided. 3) STD screening: Declined STD check. 4) Follow up one year or sooner as needed family h/o ovarian ca. Patient wondering about hysterectomy. D/w her would not recommend this. Consider genetic counseling. Easton Bautista MD documented in this encounter [facility] 12-27-2013 History of Past i llness Narrative Problem Noted Date Resolved Date Large for dates 12/27/20132013 Supervision of other normal 09/11/2013 04/29/2014 Advanced maternal age in 07/23/2013 04/29/2014 Overview: 07/23/2013She will be 33 years old in November. Advanced Maternal age discussed. Pt refused handouts on Genetic Amniocentesis and [facility] handout on Quad Marker Screen and Early Screening In given and discussed. Level II Ultrasound and Dr. Desai's services discussed. TKRN Family history of PMS (premenstrual syndrome) 09/11/2013 Overview: 07/23/2013 Patient discontinued using Sarafem on July 21. She states she was taking this for her PMS symptoms. She denies ever having depression. Patient talked to Dr. Easton Bautista today regarding weaning herself off Sarafem.TKRN Patient requested diagnostic testing 07/23/2013 09/11/2013 Overview: 07/23/2013 Patient desires early screening in with sequential testing. 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 Advanced Maternal age discussed. Pt refused handouts on Genetic Amniocentesis and [facility] handout on Quad Marker Screen and Early Screening In given and discussed. Level II Ultrasound and Dr. Desai's services discussed. TKRN Family history of PMS (premenstrual syndrome) 09/11/2013 Overview: 07/23/2013 Patient discontinued using Sarafem on July 21. She states she was taking this for her PMS symptoms. She denies ever having depression. Patient talked to Dr. Easton Bautista today regarding weaning herself off Sarafem.TKRN Patient requested diagnostic testing 07/23/2013 09/11/2013 Overview: 07/23/2013 Patient desires early screening in with sequential testing. 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 Advanced Maternal age discussed. Pt refused handouts on Genetic Amniocentesis and [facility] handout on Quad Marker Screen and Early Screening In given and discussed. Level II Ultrasound and Dr. Desai's services discussed. TKRN Family history of PMS (premenstrual syndrome) 09/11/2013 Overview: 07/23/2013 Patient discontinued using Sarafem on Tuesday, July 21. She states she was taking this for her PMS symptoms. She denies ever having depression. Patient talked to Dr. Easton Bautista today regarding weaning herself off Sarafem.TKRN Patient requested diagnostic testing 07/23/2013 09/11/2013 Overview: 07/23/2013 Patient desires early screening in with sequential testing. 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 Advanced Maternal age discussed. Pt refused handouts on Genetic Amniocentesis and [facility] handout on Quad Marker Screen and Early Screening In given and discussed. Level II Ultrasound and Dr. Desai's services discussed. TKRN Family history of PMS (premenstrual syndrome) 07/23/20 13 09/11/2013 Overview: 07/23/2013 Patient discontinued using Sarafem on July 21. She states she was taking this for her PMS symptoms. She denies ever having depression. Patient talked to Dr. Easton Bautista today regarding weaning herself off Sarafem.TKRN Patient requested diagnostic testing 07/23/2013 09/11/2013 Overview: 07/23/2013 Patient desires early screening in with sequential testing. 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 Advanced Maternal age discussed. Pt refused handouts on Genetic Amniocentesis and [facility] handout on Quad Marker Screen and Early Screening In given and discussed. Level II Ultrasound and Dr. Desai's services discussed. TKRN Family history of PMS (premenstrual syndrome) 07/23/20 13 09/11/2013 Overview: 07/23/2013 Patient discontinued using Sarafem on July 21. She states she was taking this for her PMS symptoms. She denies ever having depression. Patient talked to Dr. Easton Bautista today regarding weaning herself off Sarafem.TKRN Patient requested diagnostic testing 07/23/2013 09/11/2013 Overview: 07/23/2013 Patient desires early screening in with sequential testing. 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 Advanced Maternal age discussed. Pt refused handouts on Genetic Amniocentesis and [facility]. [facility] handout on Quad Marker Screen and Early Screening In given and discussed. Level II Ultrasound and Dr. Desai's services discussed. TKRN Family history of PMS (premenstrual syndrome) 07/23/20 13 09/11/2013 Overview: 07/23/2013 Patient discontinued using Sarafem on July 21. She states she was taking this for her PMS symptoms. She denies ever having depression. Patient talked to Dr. Easton Bautista today regarding weaning herself off Sarafem.TKRN Patient requested diagnostic testing 07/23/2013 09/11/2013 Overview: 07/23/2013 Patient desires early screening in with sequential testing. 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 Advanced Maternal age discussed. Pt refused handouts on Genetic Amniocentesis and [facility]. [facility] handout on Quad Marker Screen and Early Screening In given and discussed. Level II Ultrasound and Dr. Desai's services discussed. TKRN Family history of PMS (premenstrual syndrome) 07/23/20 13 09/11/2013 Overview: 07/23/2013 Patient discontinued using Sarafem on Tuesday, July 21. She states she was taking this for her PMS symptoms. She denies ever having depression. Patient talked to Dr. Easton Bautista today regarding weaning herself off Sarafem.TKRN Patient requested diagnostic testing 07/23/2013 09/11/2013 Overview: 07/23/2013 Patient desires early screening in with sequential testing. 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 08/20/2009 4 documented as of this encounter (statuses as of 08/10/2023) [place] noteNo assessment information availableWBethes[facility] Work Phone: Evaluation note* Diagnosis Encounter for gynecological examination (general) (routine) without abnormal findings- Primary Encounter for screening mammogram for breast cancer Family history of malignant neoplasm of ovary [facility] in [facility] Diagnosis Encounter for gynecological examination (general) (routine) without abnormal findings Encounter for screening mammogram for breast cancer documented in this [facility]* Diagnosis Encounter for gynecological examination (general) (routine) without abnormal findings Encounter for screening mammogram for breast cancer documented in this encounter [facility] note* Diagnosis 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 Encounter for gynecological examination (general) (routine) without abnormal findings- Primary Screening for cervical cancer Screening for malignant neoplasm of the cervix Encounter for screening for human papillomavirus (HPV) Special screening examination for human papillomavirus (HPV) Encounter for screening mammogram for breast cancer Encounter for screening for malignant neoplasm of colon Special screening for malignant neoplasms, colon documented in this [facility]* 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 for referral (narrative)* Diagnostic Procedure Only (Routine) - Closed Specialty Diagnoses / Procedures Referred By Nikole vargas Referred To Contact [facility] Diagnoses Encounter for gynecological examination (general) (routine) without abnormal findings Encounter for screening mammogram for breast cancer Procedures DOMI SCREENING W NBA SCREENING BREAST DGTL NBA UNI/BILAT ADD ON SCREENING MAMMOGRAPHY BI 2-VIEW BREAST INC Easton Cooper MD [address] [place] [address] [place] [phone] Referral ID Status Reason Start Date Expiration Date V isits Requested Visits Authorized [id number] Closed Auto-Generate d Referral 06/30/2021 07/30/2022 1 [facility] Diagnostic Procedure Only (Routine) - New Request Specialty Diagnoses / Procedures Referred By Nikole vargas Referred To Contact [facility] Diagnoses Encounter for gynecological examination (general) (routine) without abnormal findings Encounter for screening mammogram for breast cancer Procedures DOMI SCREENING W NBA SCREENING DIGITAL BREAST TOMOSYNTHESIS BI SCREENING MAMMOGRAPHY BI 2-VIEW BREAST INC Easton Cooper MD [address] [place] [address] [facility] [address] [phone] Referral ID Status Reason Start Date Expiration Date Visits Requested Visits Authorized [id number] New Request Auto-Generat ed Referral 10/02/2024 11/01/2025 [address] [facility] for referral (narrative)* Diagnostic Procedure Only (Routine) - Closed Specialty Diagnoses / Procedures Referred By Nikole vargas Referred To Contact [facility] Diagnoses Encounter for gynecological examination (general) (routine) without abnormal findings Encounter for screening mammogram for breast cancer Procedures DOMI SCREENING W NBA SCREENING DIGITAL BREAST TOMOSYNTHESIS BI SCREENING MAMMOGRAPHY BI 2-VIEW BREAST INC Easton Cooper MD [address] [place] [address] [facility] [address] [phone] Referral ID Status Reason Start Date Expiration Date V isits Requested Visits Authorized [id number] Closed Auto-Generate d Referral 09/30/2023 10/29/2024 [address] [facility] for referral (narrative)No reason for referral information availableWBethesda [facility] Work Phone: reason for visit Narrative* Diagnostic Procedure Only (Routine) - Closed Specialty Diagnoses / Procedures Referred By Nikole vargas Referred To Contact [facility] Diagnoses Encounter for gynecological examination (general) (routine) without abnormal findings Encounter for screening mammogram for breast cancer Procedures DOMI SCREENING W NBA SCREENING BREAST DGTL NBA UNI/BILAT ADD ON SCREENING MAMMOGRAPHY BI 2-VIEW BREAST INC Easton Cooper MD [address] [place] [address] [facility] [address] [place] [phone] Referral ID Status Reason Start Date Expiration Date V isits Requested Visits Authorized [id number] Closed Auto-Generate d Referral 06/30/2021 07/30/2022 [address] [facility] for visit Narrative* Diagnostic Procedure Only (Routine) - Closed Specialty Diagnoses / Procedures Referred By Contac t Referred To Contact [facility] Diagnoses Encounter for gynecological examination (general) (routine) without abnormal findings Encounter for screening mammogram for breast cancer Procedures DOMI SCREENING W NBA SCREENING DIGITAL BREAST TOMOSYNTHESIS BI SCREENING MAMMOGRAPHY BI 2-VIEW BREAST INC CAD Easton Bautista MD [address] [place] [address] [facility] [address] [place] [phone] Referral ID Status Reason Start Date Expiration Date V isits Requested Visits Authorized [id number] Closed Auto-Generate d Referral 07/19/2022 08/18/2023 [address] [facility] for visit Narrative* Diagnostic Procedure Only (Routine) - Closed Specialty Diagnoses / Procedures Referred By Nikole vargas Referred To Contact [facility] Diagnoses Encounter for gynecological examination (general) (routine) without abnormal findings Encounter for screening mammogram for breast cancer Procedures DOMI SCREENING W NBA SCREENING DIGITAL BREAST TOMOSYNTHESIS BI SCREENING MAMMOGRAPHY BI 2-VIEW BREAST INC Easton Cooper MD [address] [place] [address] [facility] [address] [place] [phone] Referral ID Status Reason Start Date Expiration Date V isits Requested Visits Authorized [id number] Closed Auto-Generate d Referral 09/30/2023 10/29/2024 1 1 [place] Advance Directives No Advanced Directives Records FoundDocuments on File Type Date Recorded 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 Advance Directive(s) Advance Directive Response Recorded Date/ Time Advance Directives No October 7:41pm Living Will No July 04 4:03pm Power of Condominium Association Manager No July 04, 2019 4:03pm Advance Directive Response Recorded Date/ Time Advance Directives No October 6:41pm Living Will No July 04 3:03pm Power of Condominium Association Manager No July 04, 2019 3:03pm Advance Directive Response Recorded Date/ Time Advance Directives No October 7:41pm Family History No Family History Records Found Relationship Condition Age at Onset Recorded Date/T uday Unknown Family History?No pertinent history Unkno wn November 14, 2015 1:50pm Relationship Condition Age at Onset Recorded Date/T uday Unknown Family History?No pertinent history Unkno wn November 14, 2015 12:50pm Reason for Referral Specialty Diagnoses / Procedures Referred By Nikole vargas Referred To Contact Diagnoses Family history of malignant neoplasm of ovary Procedures CONSULT TO MEDICAL GENETICS - CANCER MEDICAL GENETICS COUNSELING EACH 30 MINUTES Easton Bautista MD [address] [place] [address] [address] Referral ID Status Reason Start Date Expiration Date Visits Requested Visits Authorized [id number] Authorized PCP Requested Referral Auto-Generate d Referral 07/19/2022 07/19/2023 1 1 Specialty Diagnoses / Procedures Referred By Nikole vargas Referred To Contact [facility] Diagnoses Encounter for gynecological examination (general) (routine) without abnormal findings Encounter for screening mammogram for breast cancer Procedures DOMI SCREENING W NBA SCREENING DIGITAL BREAST TOMOSYNTHESIS BI SCREENING MAMMOGRAPHY BI 2-VIEW BREAST INC CAD Easton Bautista MD [address] [place] [address] [facility] [address] [place] [phone] Referral ID Status Reason Start Date Expiration Date Visits Requested Visits Authorized [id number] Pending Review Auto-Generat ed Referral 07/19/2022 08/18/2023 1 1 Chief Complaint and Reason for Visit Chief Complaint SKIN Summary Purpose Additional Source Comments Source Comments (unrecognize d section and content) In the event this informatio n is protected by the Federal Confidentiality of Alcohol and Drug Abuse Patient Records regulations: The Federal rules restrict any use of the information to criminally investigate or prosecute any alcohol or drug abuse patient.[place] the event this information is protected by the Federal Confidentiality of Alcohol and Drug Abuse Patient Records regulations: The Federal rules restrict any use of the information to criminally investigate or prosecute any alcohol or drug abuse patient.[place] the event this information is protected by the Federal Confidentiality of Alcohol and Drug Abuse Patient Records regulations: The Federal rules restrict any use of the information to criminally investigate or prosecute any alcohol or drug abuse patient.[place] the event this information is protected by the Federal Confidentiality of Alcohol and Drug Abuse Patient Records regulations: The Federal rules restrict any use of the information to criminally investigate or prosecute any alcohol or drug abuse patient.[place]In the event this information is protected by the Federal Confidentiality of Alcohol and Drug Abuse Patient Records regulations: The Federal rules restrict any use of the information to criminally investigate or prosecute any alcohol or drug abuse patient.[place]In the event this information is protected by the Federal Confidentiality of Alcohol and Drug Abuse Patient Records regulations: The Federal rules restrict any use of the information to criminally investigate or prosecute any alcohol or drug abuse patient.[place]In the event this information is protected by the Federal Confidentiality of Alcohol and Drug Abuse Patient Records regulations: The Federal rules restrict any use of the information to criminally investigate or prosecute any alcohol or drug abuse patient.[place]In the event this information is protected by the Federal Confidentiality of Alcohol and Drug Abuse Patient Records regulations: The Federal rules restrict any use of the information to criminally investigate or prosecute any alcohol or drug abuse patient.[place] the event this information is protected by the Federal Confidentiality of Alcohol and Drug Abuse Patient Records regulations: The Federal rules restrict any use of the information to criminally investigate or prosecute any alcohol or drug abuse patient.[place] Care Teams (unrecognized sec tion and content) Patient Relations Director Relationship Specialty Start Date End Date Haroldo Peck III, MD PCP - General 08/27/09 Patient Relations Director Relationship Specialty Start Date End Date Haroldo Peck III, MD PCP - General 08/27/09 Patient Relations Director Relationship Specialty Start Date End Date Haroldo Peck III, MD PCP - General 08/27/09 Team Status: Active Member Role Status Dates Dr. Haroldo Peck III, MD Family Provider Active Dr. Bradley Gant MD Primary Care Provider Active Team Status: Inactive Member Role Status Dates Dr. Bradley Gant MD Primary Care Provider Active Dr. Andrew Gregory MD Attending Provider Active Patient Relations Director Relationship Specialty Start Date End Date Haroldo Peck III, MD PCP General 08/27/09 08/04/22 Team Status: Inactive Member Role Status Dates Dr. Bradley Gant MD Primary Care Provider Active Start: December 25, 2024 End: December 25, 2024 Dr. Bradley Gant MD Attending Provider Active St art: December 25, 2024 End: December 25, 2024 Goals (unrecognized section and content) Goals may be documented in a n alternate sectionGoals may be documented in an alternate sectionGoals may be documented in an alternate sectionGoals may be documented in an alternate section Reason for Visit (unrecogniz ed section and content) Reason Comments Yearly Exam With Mammogram Reason Comments [facility] INFORMATION SOURCE (unrecogn ized section and content) DATE CREATED AUTHOR 10/10/2024 [facility] DATE CREATED AUTHOR AUTHOR'S ORGANIZ ATION 12/31/2024 [facility] FOR RECORDS PERTAINING TO PATIENTS WHO ARE OR HAVE BEEN ENROLLED IN A CHEMICAL DEPENDENCY/SUBSTANCEABUSE PROGRAM, SOME INFORMATION MAY BE OMITTED. This clinical summary was aggregated from multiple sources. Caution should be exercised in using it in the provision of clinical care. This summary normalizes information from multiple sources, and as a consequence, information in this document may materially change the coding, format and clinical context of patient data. In addition, data may be omitted in some cases. CLINICAL DECISIONS SHOULD BE BASED ON THE PRIMARY CLINICAL RECORDS. [facility]. provides no warranty or guarantee of the accuracy or completeness of information in this document.
[2025-02-27 11:24] LABS: Follicle Stimulating Hormone 2.9 mIU/mL; Luteinizing Hormone 6.8 mIU/mL
[2025-03-06 13:08] LABS: PROGESTERONE 1.1 ng/mL (.)
== END | disposition home or self-care (01) ==
LOC: MTLAB 07:05
PROVIDERS: PCP Family Medicine; Referring Provider Family Medicine; Visit Provider Family Medicine
DX: E66.811 Obesity, class 1 (principal); Z68.33 Body mass index [BMI] 33.0-33.9, adult
CPT/HCPCS: 36415; 82670; 83001; 83002; 84144; 84443

== ENCOUNTER → 2025-05-08 | Outpatient (CLI) | payer OTHER, SELFPAY ==
[2025-05-08 10:07] LABS: Hematocrit 43.0 % (37-47); Hemoglobin 14.4 g/dL (12.0-15.0); Immature Granulocytes Count 0.020 X10^3/uL (0.0-0.0); Mean Corp Hgb Conc 33.5 g/dL (32-36); Mean Corpuscular Volume 93.1 fL (81-99); Mean Platelet Vol. 12.9 fl (6.2-12.0); NRBC Flagged by Analyzer 0 % (0-5); Platelet Count 148 K/mm3 (150-450); RBC Distribution Width CV 13.3 % (11.6-14.6); RBC Distribution Width SD 45.7 fl (35.1-43.9); Red Blood Count 4.62 M/mm3 (4.2-5.4); White Blood Count 8.8 K/mm3 (4.4-11.0)
[2025-05-08 10:46] LABS: AST(SGOT) 18 U/L (<=31); Alanine Aminotransfer ALT/SGPT 15 U/L (<=34); Albumin, Serum 4.1 g/dL (3.5-5.0); Alkaline Phosphatase 70 U/L (35-104); Bilirubin, Direct 0.19 mg/dL (0.00-0.30); Globulin 3.2 g/dL (2.2-4.2)
== END | disposition home or self-care (01) ==
LOC: MTLAB 08:35
PROVIDERS: PCP Family Medicine; Referring Provider Dermatology; Visit Provider Dermatology
DX: Z00.00 Encounter for general adult medical examination without abnormal findings (principal)
CPT/HCPCS: 36415; 80076; 85025; 86480

== ENCOUNTER → 2025-06-28 | Outpatient (CLI) | payer OTHER, SELFPAY ==
[2025-07-02 20:08] LABS: QNTFERON TB Mitogen Value > 10.00 IU/mL (.); QNTFERON TB Nil Value 0.34 IU/mL (.); QNTFERON TB1+ Ag Value 0.31 IU/mL (.); QNTFERON TB2+ Ag Value 0.11 IU/mL (.); QNTIFERON TB Positive Criteria Negative (Negative)
== END | disposition home or self-care (01) ==
LOC: MTLAB 10:09
PROVIDERS: PCP Family Medicine; Referring Provider Dermatology; Visit Provider Dermatology
DX: Z79.899 Other long term (current) drug therapy (principal)
CPT/HCPCS: 36415; 86480